=== PATIENT | male | born 1985 | race Caucasian/White ===

== ENCOUNTER 2017-01-17 18:25 | Emergency (ER) | payer OTHER ==
[2017-01-17 20:39] VITALS: BP 129/78; PULSE 103; RESP 18; TEMP 97.7
--- NOTE | 2017-01-17 20:43 | ED ---
General Adult HPI - General Chief complaint: Anxiety Stated complaint: ANXIETY Time Seen by Provider: 01/17/17 20:12 Source: patient Mode of arrival: ambulatory Limitations: no limitations - History of Present Illness Initial comments: 31-year-old male with history of anxiety presenting for worsening anxiety. Patient states his headache worsen stresses over the past week and still very anxious for the past 4 days. He states his neck really have any of his medications. He has not followed up with primary doctor past several months. He denies any other medical complaints at this time. Denies any fevers or chills. Denies any chest pain or shortness breath. - Related Data Previous Rx's Medication Instructions Recorded LORazepam [Ativan] 1 mg PO HS PRN #5 tab 01/17/17 Allergies Allergy/AdvReac Type Severity Reaction Status Date / Time No Known Allergies Allergy Verified 01/17/17 20:17 Review of Systems ROS Statement: Those systems with pertinent positive or pertinent negative responses have been documented in the HPI. ROS Other: All systems not noted in ROS Statement are negative. Past Medical History Past Medical History: No Reported History Additional Past Medical History / Comment(s): chronic back pain, migraine, seasonal ALLERGIES, kidney stones History of Any Multi-Drug Resistant Organisms: None Reported Past Surgical History: No Surgical Hx Reported Past Anesthesia/Blood Transfusion Reactions: No Reported Reaction Past Psychological History: ADD/ADHD, Anxiety, Depression Smoking Status: Heavy tobacco smoker Past Alcohol Use History: Daily Additional Past Alcohol Use History / Comment(s): Patient smokes a pack a day Past Drug Use History: None Reported Additional Drug Use History / Comment(s): amphetamines - Past Family History Father Family Medical History: No Reported History Additional Family Medical History / Comment(s): Father is approximately 50 years of age. Patient has no contact with his father. Mother Family Medical History: No Reported History Additional Family Medical History / Comment(s): Mother is age 48 and healthy with no major medical problems. Sister(s) Additional Family Medical History / Comment(s): He has 2 sisters with no major medical problems. Patient does not have any brothers. General Exam - General Exam Comments Initial Comments: General: Awake and Alert. No acute distress. Does not appear acutely ill. Eyes: GIOVANNY, EOM intact. No nystagmus. No scleral icterus. HENT: Atraumatic, normocephalic. Mucous membranes moist. Trachea midline. Neck: The neck is supple, there is no tenderness or JVD. Cardiovascular: Regular rate and rhythm. No murmur, rub, or gallop is appreciated. Distal pulses intact. Respiratory: Lungs are clear to auscultation bilaterally. No wheezes, rales, rhonchi. No respiratory distress. Gastrointestinal: Soft, Nontender. No rebound or guarding. Non-distended. No masses or organomegaly noted. No CVA tenderness. Musculoskeletal: No tenderness. Normal ROM. No gross deformity. No strength deficits. Neurological: A&Ox3. CN II-XII grossly intact, There are no obvious motor or sensory deficits. Coordination appears grossly intact. Speech is normal. Skin: Skin is warm and dry and no rashes or lesions are noted. Psychiatric: Cooperative. Blunted affect. Appears somewhat anxious. Limitations: no limitations Course Vital Signs 01/17/17 01/17/17 18:52 20:37 Temperature 99.4 F 97.7 F Pulse Rate 107 H 103 H Respiratory 16 18 Rate Blood Pressure 137/92 129/78 O2 Sat by Pulse 99 100 Oximetry Medical Decision Making - Medical Decision Making 31-year-old male presenting for anxiety. Patient without other significant medical complaints at this time. He denies suicidal or homicidal ideations. I had discussion with patient about importance PCP follow-up. He has not been compliant with PCP follow-up for his normal medications. Discussed I would provide him with Rx for several of his Ativan pills to help with his anxiety. Discussed need for outpatient follow-up as the ER is not an appropriate place for routine medical care. Discussed concerning signs symptoms for immediate return in ED. Patient is otherwise stable for discharge at this time. Patient agreeable with plan and discharge home. Provided with follow-up information as he does not currently have PCP. Disposition Clinical Impression: Anxiety Disposition: HOME SELF-CARE Instructions: Generalized Anxiety Disorder (ED) Prescriptions: LORazepam [Ativan] 1 mg PO HS PRN #5 tab PRN Reason: Anxiety Referrals: None,Stated [Primary Care Provider] - 1-2 days Reynaldo Friend MD [REFERRING] - 1-2 days Time of Disposition: 20:42
== END 2017-01-17 20:52 | disposition home or self-care (01) ==
LOC: EC 18:25
DX: F41.9 Anxiety disorder, unspecified (principal); R51 Headache; F17.200 Nicotine dependence, unspecified, uncomplicated
CPT/HCPCS: 99282

== ENCOUNTER 2017-01-18 07:16 | Emergency (ER) | payer OTHER ==
--- NOTE | 2017-01-18 07:42 | ED ---
Psych HPI - General Chief Complaint: Psychiatric Symptoms Stated Complaint: Anxiety Time Seen by Provider: 01/18/17 07:30 Source: patient, RN notes reviewed Mode of arrival: ambulatory - History of Present Illness Initial Comments: This is a 31-year-old male history depression who states he is feeling depressed and suicidal for the past 2 days. He has been off medications. He states he has had thoughts of stabbing himself were drawn so. He states years multiple stressors. Nothing specific. Denies any drug or alcohol this time he denies any fevers chills nausea vomiting sweats. He voices no other complaints. MD Complaint: suicidal ideation, feels depressed - Related Data Home Medications Medication Instructions Recorded Confirmed LORazepam [Ativan] 2 mg PO BID PRN 01/18/17 01/18/17 QUEtiapine [SEROquel] 100 mg PO HS 01/18/17 01/18/17 Venlafaxine HCl [Effexor] 100 mg PO DAILY 01/18/17 01/18/17 Allergies Allergy/AdvReac Type Severity Reaction Status Date / Time No Known Allergies Allergy Verified 01/18/17 08:32 Review of Systems ROS Statement: Those systems with pertinent positive or pertinent negative responses have been documented in the HPI. ROS Other: All systems not noted in ROS Statement are negative. Past Medical History Past Medical History: No Reported History Additional Past Medical History / Comment(s): chronic back pain, migraine, seasonal ALLERGIES, kidney stones History of Any Multi-Drug Resistant Organisms: None Reported Past Surgical History: No Surgical Hx Reported Past Anesthesia/Blood Transfusion Reactions: No Reported Reaction Past Psychological History: ADD/ADHD, Anxiety, Depression Smoking Status: Heavy tobacco smoker Past Alcohol Use History: Daily Additional Past Alcohol Use History / Comment(s): Patient smokes a pack a day Past Drug Use History: None Reported Additional Drug Use History / Comment(s): amphetamines - Past Family History Father Family Medical History: No Reported History Additional Family Medical History / Comment(s): Father is approximately 50 years of age. Patient has no contact with his father. Mother Family Medical History: No Reported History Additional Family Medical History / Comment(s): Mother is age 48 and healthy with no major medical problems. Sister(s) Additional Family Medical History / Comment(s): He has 2 sisters with no major medical problems. Patient does not have any brothers. General Exam - General Exam Comments Initial Comments: This is a well-developed well-nourished awake alert oriented 3 male Limitations: no limitations General appearance: alert, in no apparent distress Head exam: Present: atraumatic, normocephalic, normal inspection Eye exam: Present: normal appearance, PERRL, EOMI. Absent: scleral icterus, conjunctival injection, periorbital swelling ENT exam: Present: normal exam, mucous membranes moist Neck exam: Present: normal inspection. Absent: tenderness, meningismus, lymphadenopathy Respiratory exam: Present: normal lung sounds bilaterally. Absent: respiratory distress, wheezes, rales, rhonchi, stridor Cardiovascular Exam: Present: regular rate, normal rhythm, normal heart sounds. Absent: systolic murmur, diastolic murmur, rubs, gallop, clicks GI/Abdominal exam: Present: soft, normal bowel sounds. Absent: distended, tenderness, guarding, rebound, rigid Extremities exam: Present: normal inspection, full ROM, normal capillary refill. Absent: tenderness, pedal edema, joint swelling, calf tenderness Back exam: Present: normal inspection Neurological exam: Present: alert, oriented X3, CN II-XII intact Psychiatric exam: Present: depressed, flat affect, suicidal ideation Skin exam: Present: warm, dry, intact, normal color. Absent: rash Course Vital Signs 01/18/17 07:19 Temperature 97.0 F L Pulse Rate 90 Respiratory 18 Rate Blood Pressure 136/93 O2 Sat by Pulse 100 Oximetry Medical Decision Making - Medical Decision Making The patient was evaluated by [facility]. He currently not wrist himself or anyone else he does admit to substance abuse problem. Patient will be sent to [facility] today. The [facility] worker will take him personally. - Lab Data Lab Results 01/18/17 Range/Units 10:15 Urine Opiates Screen Not Detected (NotDetected) Ur Oxycodone Screen Not Detected (NotDetected) Urine Methadone Screen Detected H (NotDetected) Ur Propoxyphene Screen Not Detected (NotDetected) Ur Barbiturates Screen Not Detected (NotDetected) U Tricyclic Antidepress Not Detected (NotDetected) Ur Phencyclidine Scrn Not Detected (NotDetected) Ur Amphetamines Screen Detected H (NotDetected) U Methamphetamines Scrn Detected H (NotDetected) U Benzodiazepines Scrn Not Detected (NotDetected) Urine Cocaine Screen Not Detected (NotDetected) U Marijuana (THC) Screen Not Detected (NotDetected) Disposition Clinical Impression: Adjustment reaction, Depression, Substance abuse Disposition: HOME SELF-CARE Condition: Good Instructions: Depression (ED), Anxiety (ED), Polysubstance Abuse (ED) Additional Instructions: Go to a [facility] today Referrals: None,Stated [Primary Care Provider] - 1-2 days
[2017-01-18 11:33] VITALS: BP 127/64; PULSE 94; RESP 16; TEMP 97.9
== END 2017-01-18 11:37 | disposition home or self-care (01) ==
LOC: EC 07:16
DX: F43.20 Adjustment disorder, unspecified (principal); F32.9 Major depressive disorder, single episode, unspecified; F19.19 Other psychoactive substance abuse with unspecified psychoactive substance-induced disorder; F41.9 Anxiety disorder, unspecified; F17.200 Nicotine dependence, unspecified, uncomplicated; Z79.899 Other long term (current) drug therapy
CPT/HCPCS: 80306; 82075; 99284

== ENCOUNTER 2017-02-21 23:32 | Emergency (ER) | payer OTHER ==
[2017-02-21 23:38] VITALS: BP 130/79; PULSE 107; RESP 18; TEMP 99
[2017-02-21] MEDS ORDERED: AMOXICILLIN 500MG STARTER PACK 3 CAP BTL PO STA (23:45)
[2017-02-21] MEDS ORDERED: MAG HYDROX/AL HYDROX/SIMETH 30 ML, HYOSCYAMINE ELIXIR 10 ML, CIMETIDINE HCL 300 MG, LID... PO STA ×4 (23:45)
--- NOTE | 2017-02-21 23:50 | ED ---
General Adult HPI - General Chief complaint: ENT Stated complaint: sore throat Time Seen by Provider: 02/21/17 23:40 Source: patient, family, RN notes reviewed Mode of arrival: ambulatory Limitations: no limitations - History of Present Illness Initial comments: Patient is a pleasant 31-year-old male presenting to the emergency department complaining of throat pain. Symptoms have been waxing and waning over the past couple of weeks. Patient also has discomfort of his right side of the throat where his dentures touch. Patient states his throat also hurts posterior and down inside. Patient states it hurts to eat and drink. Symptoms have been worse the past day or 2. No fevers. No cough. No dyspnea. - Related Data Previous Rx's Medication Instructions Recorded Amoxicillin 500 mg PO Q8H #30 capsule 02/21/17 Allergies Allergy/AdvReac Type Severity Reaction Status Date / Time No Known Allergies Allergy Verified 02/21/17 23:45 Review of Systems ROS Statement: Those systems with pertinent positive or pertinent negative responses have been documented in the HPI. ROS Other: All systems not noted in ROS Statement are negative. Constitutional: Denies: fever Eyes: Denies: eye pain ENT: Reports: throat pain. Denies: ear pain Respiratory: Denies: dyspnea Cardiovascular: Denies: chest pain Endocrine: Denies: fatigue Gastrointestinal: Denies: abdominal pain Genitourinary: Denies: dysuria Musculoskeletal: Denies: back pain Skin: Denies: rash Neurological: Denies: weakness Past Medical History Past Medical History: No Reported History Additional Past Medical History / Comment(s): chronic back pain, migraine, seasonal ALLERGIES, kidney stones History of Any Multi-Drug Resistant Organisms: None Reported Past Surgical History: No Surgical Hx Reported Past Anesthesia/Blood Transfusion Reactions: No Reported Reaction Past Psychological History: ADD/ADHD, Anxiety, Depression Smoking Status: Never smoker Past Alcohol Use History: Daily Past Drug Use History: None Reported - Past Family History Father Family Medical History: No Reported History Additional Family Medical History / Comment(s): Father is approximately 50 years of age. Patient has no contact with his father. Mother Family Medical History: No Reported History Additional Family Medical History / Comment(s): Mother is age 48 and healthy with no major medical problems. Sister(s) Additional Family Medical History / Comment(s): He has 2 sisters with no major medical problems. Patient does not have any brothers. General Exam Limitations: no limitations General appearance: alert, in no apparent distress Head exam: Present: atraumatic Eye exam: Present: normal appearance, PERRL ENT exam: Present: other (Patient doesn't mild pharyngeal erythema. Patient does have a small approximately 8 x 3 mm ulceration right posterior palate where the upper denture does touch.) Expanded Throat exam: other (No trismus). negative: tonsillomegaly, tonsillar exudate, R peritonsillar mass, L peritonsillar mass Neck exam: Present: lymphadenopathy (Mildly tender) Respiratory exam: Present: normal lung sounds bilaterally Cardiovascular Exam: Present: regular rate, normal rhythm GI/Abdominal exam: Present: soft. Absent: tenderness Extremities exam: Present: normal inspection Neurological exam: Present: alert Psychiatric exam: Present: normal affect, normal mood Skin exam: Present: normal color Course Vital Signs 02/21/17 23:36 Temperature 99 F Pulse Rate 107 H Respiratory 18 Rate Blood Pressure 130/79 O2 Sat by Pulse 97 Oximetry Disposition Clinical Impression: Pharyngitis, Mouth ulcer Disposition: HOME SELF-CARE Condition: Stable Instructions: Pharyngitis (ED) Additional Instructions: Please follow-up with your doctor in the next couple days for recheck. If symptoms continue despite antibiotics she may need to have direct visualization of the throat by ENT, number provided. Return for not tolerating fluids, difficulty breathing, worsening symptoms or other concerns. Avoid using your dentures until mouth ulcer clears. Prescriptions: Amoxicillin 500 mg PO Q8H #30 capsule Referrals: Harjit Santa MD [STAFF PHYSICIAN] - 1-2 days Doe Aguero MD [STAFF PHYSICIAN] - 1-2 days Time of Disposition: 23:50
== END 2017-02-21 23:58 | disposition home or self-care (01) ==
LOC: EC 23:32
DX: J02.9 Acute pharyngitis, unspecified (principal); K12.1 Other forms of stomatitis
CPT/HCPCS: 99282

== ENCOUNTER 2017-05-03 20:46 | Emergency (ER) | payer OTHER ==
[2017-05-03 21:02] VITALS: BP 124/69; PULSE 98; RESP 16; TEMP 99.2
[2017-05-03] MEDS ORDERED: LORazepam 1 MG TAB PO STA (21:12)
--- NOTE | 2017-05-03 21:14 | ED ---
General Adult HPI - General Chief complaint: Anxiety Stated complaint: Anxiety Time Seen by Provider: 05/03/17 21:00 Source: patient, RN notes reviewed Mode of arrival: ambulatory Limitations: no limitations - History of Present Illness Initial comments: This is a 31-year-old male presents emergency department stating that he is anxious. Patient states he used to be on Ativan pain no longer has any because he has not followed up with [facility]. Patient states he plans to follow-up at [facility] and he is capable of following up tomorrow. Patient states he just needs something tonight because he is becoming very anxious and is afraid he is going to have a panic attack. Patient denies any physical complaints today. Patient denies headache patient denies numbness weakness. Patient denies any chest pain difficulty breathing Obion of breath per patient denies any abdominal pain patient denies nausea vomiting diarrhea. And in fact was begun patient is drinking couple coughing currently. Patient denies any recent injury or trauma. Patient states she has been addicted in the past 2 pain pills but he is no longer because he went through rehab approximately year ago. - Related Data Home Medications Medication Instructions Recorded Confirmed No Known Home Medications [No 05/03/17 05/03/17 Known Home Medications] Allergies Allergy/AdvReac Type Severity Reaction Status Date / Time No Known Allergies Allergy Verified 05/03/17 21:06 Review of Systems ROS Statement: Those systems with pertinent positive or pertinent negative responses have been documented in the HPI. ROS Other: All systems not noted in ROS Statement are negative. Past Medical History Past Medical History: No Reported History Additional Past Medical History / Comment(s): chronic back pain, migraine, seasonal ALLERGIES, kidney stones History of Any Multi-Drug Resistant Organisms: None Reported Past Surgical History: No Surgical Hx Reported Past Anesthesia/Blood Transfusion Reactions: No Reported Reaction Past Psychological History: ADD/ADHD, Anxiety, Depression Smoking Status: Never smoker Past Alcohol Use History: Daily Past Drug Use History: None Reported - Past Family History Father Family Medical History: No Reported History Additional Family Medical History / Comment(s): Father is approximately 50 years of age. Patient has no contact with his father. Mother Family Medical History: No Reported History Additional Family Medical History / Comment(s): Mother is age 48 and healthy with no major medical problems. Sister(s) Additional Family Medical History / Comment(s): He has 2 sisters with no major medical problems. Patient does not have any brothers. General Exam - General Exam Comments Initial Comments: GENERAL: Patient is well-developed and well-nourished. Patient is nontoxic and well- hydrated and is in no acute distress. ENT: Neck is soft and supple. No significant lymphadenopathy is noted. Moist mucous membranes. Neck has full range of motion without eliciting any pain. EYES: The sclera were anicteric and conjunctiva were pink and moist. Extraocular movements were intact and pupils were equal round and reactive to light. Eyelids were unremarkable. PULMONARY: Unlabored respirations. Good breath sounds bilaterally. No audible rales rhonchi or wheezing was noted. CARDIOVASCULAR: There is a regular rate and rhythm without any murmurs gallops or rubs. ABDOMEN: Soft and nontender with normal bowel sounds. SKIN: Skin is clear with no lesions or rashes and otherwise unremarkable. NEUROLOGIC: Patient is alert and oriented x3. Cranial nerves II through XII are grossly intact. Motor and sensory are also intact. Normal speech, volume and content. Symmetrical smile. MUSCULOSKELETAL: Normal extremities with adequate strength and full range of motion. No lower extremity swelling or edema. No calf tenderness. PSYCHIATRIC: Patient is mildly anxious he denies suicidal or homicidal ideations he denies any delusions or hallucinations. Limitations: no limitations Course Vital Signs 05/03/17 20:59 Temperature 99.2 F Pulse Rate 98 Respiratory 16 Rate Blood Pressure 124/69 O2 Sat by Pulse 98 Oximetry Disposition Clinical Impression: Acute anxiety Disposition: HOME SELF-CARE Condition: Good Instructions: Generalized Anxiety Disorder (ED) Referrals: None,Stated [Primary Care Provider] - 1-2 days Time of Disposition: 21:14
== END 2017-05-03 21:22 | disposition home or self-care (01) ==
LOC: EC 20:46
DX: F41.9 Anxiety disorder, unspecified (principal)
CPT/HCPCS: 82075; 99283

== ENCOUNTER 2018-02-14 08:51 | Inpatient (IN) | payer OTHER ==
--- NOTE | 2018-02-14 09:46 | ED ---
General Adult HPI - General Chief complaint: Psychiatric Symptoms Stated complaint: Mental Health Time Seen by Provider: 02/14/18 09:08 Source: patient, RN notes reviewed Mode of arrival: ambulatory Limitations: no limitations - History of Present Illness Initial comments: Patient 32-year-old male presented to the emergency room today with a chief complaint of suicidal ideation. Patient does admit that he's been off his medications for over a month. He states last time he saw his counselor was a month ago. Patient does admit he is having thoughts of hurting himself. At this time denies any specific plan. Patient denies homicidal thoughts or plans. Denies any other physical complaint. Patient denies any recent fever, chills, shortness of breath, chest pain, back pain, abdominal pain, nausea or vomiting, numbness or tingling, headaches or visual changes, or any other complaints. - Related Data Home Medications Medication Instructions Recorded Confirmed OLANZapine [ZyPREXA] 5 mg PO QAM 02/14/18 02/14/18 OLANZapine [ZyPREXA] 20 mg PO HS 02/14/18 02/14/18 buPROPion HCL [Wellbutrin XL] 150 mg PO HS 02/14/18 02/14/18 Allergies Allergy/AdvReac Type Severity Reaction Status Date / Time No Known Allergies Allergy Verified 02/14/18 09:32 Review of Systems ROS Statement: Those systems with pertinent positive or pertinent negative responses have been documented in the HPI. ROS Other: All systems not noted in ROS Statement are negative. Past Medical History Past Medical History: No Reported History Additional Past Medical History / Comment(s): chronic back pain, migraine, seasonal ALLERGIES, kidney stones History of Any Multi-Drug Resistant Organisms: None Reported Past Surgical History: No Surgical Hx Reported Additional Past Surgical History / Comment(s): Oral Surgery 1990s, per patient. Past Anesthesia/Blood Transfusion Reactions: No Reported Reaction Past Psychological History: ADD/ADHD, Anxiety, Depression Smoking Status: Never smoker Past Alcohol Use History: None Reported, Daily Past Drug Use History: None Reported - Past Family History Father Family Medical History: No Reported History Additional Family Medical History / Comment(s): Father is approximately 50 years of age. Patient has no contact with his father. Mother Family Medical History: No Reported History Additional Family Medical History / Comment(s): Mother is age 48 and healthy with no major medical problems. Sister(s) Family Medical History: No Reported History Additional Family Medical History / Comment(s): He has 2 sisters with no major medical problems. Patient does not have any brothers. General Exam - General Exam Comments Initial Comments: General: The patient is awake and alert, in no distress, and does not appear acutely ill. Eye: Pupils are equal, round and reactive to light, extra-ocular movements are intact. No nystagmus. There is normal conjunctiva bilaterally. No signs of icterus. Ears, nose, mouth and throat: There are moist mucous membranes and no oral lesions. Neck: The neck is supple, there is no tenderness or JVD. Cardiovascular: There is a regular rate and rhythm. No murmur, rub or gallop is appreciated. Respiratory: Lungs are clear to auscultation, respirations are non-labored, breath sounds are equal. No wheezes, stridor, rales, or rhonchi. Musculoskeletal: Normal ROM, no tenderness. Strength 5/5. Sensation intact. Pulses equal bilaterally 2+. Neurological: A&O x 3. CN II-XII intact, There are no obvious motor or sensory deficits. Coordination appears grossly intact. Speech is normal. Skin: Skin is warm and dry and no rashes or lesions are noted. Psychiatric: Cooperative Limitations: no limitations Course Vital Signs 02/14/18 09:02 Temperature 98.2 F Pulse Rate 118 H Respiratory 18 Rate Blood Pressure 124/83 O2 Sat by Pulse 100 Oximetry Medical Decision Making - Medical Decision Making Patient seen here the emergency room by [facility] further recommended admission. Patient will sign himself in. - Lab Data Lab Results 02/14/18 Range/Units 10:00 Urine Opiates Screen Not Detected (NotDetected) Ur Oxycodone Screen Not Detected (NotDetected) Urine Methadone Screen Detected H (NotDetected) Ur Propoxyphene Screen Not Detected (NotDetected) Ur Barbiturates Screen Not Detected (NotDetected) U Tricyclic Antidepress Not Detected (NotDetected) Ur Phencyclidine Scrn Not Detected (NotDetected) Ur Amphetamines Screen Detected H (NotDetected) U Methamphetamines Scrn Detected H (NotDetected) U Benzodiazepines Scrn Not Detected (NotDetected) Urine Cocaine Screen Not Detected (NotDetected) U Marijuana (THC) Screen Detected H (NotDetected) Disposition Clinical Impression: Suicidal ideation Disposition: HOME SELF-CARE Condition: Good Is patient prescribed a controlled substance at d/c from ED?: No Time of Disposition: 13:52
[2018-02-14 10:32] LABS: Amphetamine Screen,Urine Detected (NotDetected); Barbiturate Screen,Urine Not Detected (NotDetected); Benzodiazepines Screen,Urine Not Detected (NotDetected); Cocaine Screen,Urine Not Detected (NotDetected); Methadone Screen, Urine Detected (NotDetected); Opiate Screen,Urine Not Detected (NotDetected); Oxycodone Screen, Urine Not Detected (NotDetected); Phencyclidine Screen,Urine Not Detected (NotDetected); Tricyclic Antidepressant,Urine Not Detected (NotDetected); Urn Cannabinoid Scrn Detected (NotDetected)
[2018-02-14] MEDS ORDERED: ACETAMINOPHEN TAB 325 MG TAB PO PRN (15:05)
[2018-02-14] MEDS ORDERED: ZIPRASIDONE 20 MG VIAL IM PRN (15:05)
[2018-02-14] MEDS ORDERED: LORazepam 1 MG TAB PO PRN (15:05)
[2018-02-14] MEDS ORDERED: MAG HYDROX/AL HYDROX/SIMETH 30 ML CUP PO PRN (15:05)
[2018-02-14] MEDS ORDERED: MAGNESIUM HYDROXIDE 2,400 MG/10 ML CUP PO PRN (15:05)
--- NOTE | 2018-02-14 17:24 | P.HPIM ---
History of Present Illness H&P Date: 02/14/18 Chief Complaint: Depression with suicidal ideation Patient is a 32-year-old male presented to the emergency room today with a chief complaint of suicidal ideation. He has history of bipolar disorder and depression and supposed to be on medication for those conditions. Patient does admit that he's been off his medications for over a month. He states last time he saw his counselor was a month ago. He has been increasingly depressed and anxious over the past several weeks, having thoughts about killing himself. He was thinking about cutting his wrist. He did not execute any of that. Otherwise denied any pain, shortness of breath, fevers or chills, recent illness , nausea or vomiting. No hallucinations or delusions. No homicidal thoughts or plans. Review of Systems 12 point review of system performed, negative except HPI Past Medical History Past Medical History: No Reported History Additional Past Medical History / Comment(s): chronic back pain, migraine, seasonal ALLERGIES, kidney stones History of Any Multi-Drug Resistant Organisms: None Reported Past Surgical History: No Surgical Hx Reported Additional Past Surgical History / Comment(s): Oral Surgery 1990s, per patient. Past Anesthesia/Blood Transfusion Reactions: No Reported Reaction Past Psychological History: ADD/ADHD, Anxiety, Depression Smoking Status: Never smoker Past Alcohol Use History: None Reported Past Drug Use History: Heroin, Marijuana, Methamphetamine, Opiates, Prescription Drug Abuse - Past Family History Father Family Medical History: No Reported History Additional Family Medical History / Comment(s): Father is approximately 50 years of age. Patient has no contact with his father. Mother Family Medical History: No Reported History Additional Family Medical History / Comment(s): Mother is age 48 and healthy with no major medical problems. Sister(s) Family Medical History: No Reported History Additional Family Medical History / Comment(s): He has 2 sisters with no major medical problems. Patient does not have any brothers. Medications and Allergies Home Medications Medication Instructions Recorded Confirmed Type OLANZapine [ZyPREXA] 5 mg PO QAM 02/14/18 02/14/18 History OLANZapine [ZyPREXA] 20 mg PO HS 02/14/18 02/14/18 History buPROPion HCL [Wellbutrin XL] 150 mg PO HS 02/14/18 02/14/18 History Allergies Allergy/AdvReac Type Severity Reaction Status Date / Time No Known Allergies Allergy Verified 02/14/18 09:32 Physical Exam Vitals: Vital Signs Temp Pulse Pulse Resp BP BP Pulse Ox 02/14/18 14:40 97.7 F 100 20 130/84 02/14/18 09:02 98.2 F 118 H 18 124/83 100 Intake and Output 02/14/18 02/14/18 02/14/18 06:59 14:59 22:59 Other: Weight 86.6 kg Constitutional: No acute distress, conversant, pleasant Eyes:Anicteric sclerae, moist conjunctiva, no lid-lag, PERRLA, ENMT: Oropharynx clear, no erythema, exudates Neck: Supple, FROM, no masses, or JVD, No carotid bruits, No thyromegaly Lungs: Clear to auscultation, Clear to percussion, Normal respiratory effort, no accessory muscle use Cardiovascular: Heart regular in rate and rhythm, No murmurs, gallops, or rubs, No peripheral edema Abdominal: Soft, Nontender, no guarding, rebound or rigidity, Normoactive bowel sounds, No hepatomegaly, No splenomegaly, No palpable mass Skin: Normal temperature, tone, texture, turgor, no induration, No subcutaneous nodules, No rash, lesions, No ulcers Extremities: No digital cyanosis, No clubbing, Pedal pulses intact and symmetrical, Radial pulses intact and symmetrical, No calf tenderness Psychiatric: Alert and oriented to person, place and time, appropriate affect, intact judgement Neuro: Muscles Strength 5/5 in all 4 extremities, Sensation to light touch grossly present throughout, Cranial nerves II-XII grossly intact, no focal sensory deficits Results Labs: Abnormal Lab Results - Last 24 Hours (Table) 02/14/18 Range/Units 10:00 Urine Methadone Screen Detected H (NotDetected) Ur Amphetamines Screen Detected H (NotDetected) U Methamphetamines Scrn Detected H (NotDetected) U Marijuana (THC) Screen Detected H (NotDetected) Thrombosis Risk Factor Assmnt - Choose All That Apply Any of the Below Risk Factors Present?: No Other Risk Factors: No Other congenital or acquired thrombophilia - If yes, enter type in comment: No Thrombosis Risk Factor Assessment Level: Very Low Risk Assessment and Plan Plan: Worsening depression with suicidal ideation/history of bipolar disorder and anxiety Management per psychiatry Continue patient's home medications Health maintenance Check CBC, CMP, lipid profile, TSH
[2018-02-15] MEDS ORDERED: OLANZapine 2.5 MG TAB PO PRN (09:39)
[2018-02-15] MEDS: buPROPion SR 150 MG TABLET.ER PO SCH (10:39)
[2018-02-15 14:21] LABS: Basophils % (A) 0 %; Eosinophils # (A) 0.1 k/uL (0-0.7); Eosinophils % (A) 1 %; HCT 41.5 % (39.0-53.0); HGB 15.1 gm/dL (13.0-17.5); Lymphocytes # (A) 1.5 k/uL (1.0-4.8); Lymphocytes % (A) 25 %; MCHC 36.3 g/dL (31.0-37.0); MCV 85.2 fL (80.0-100.0); Mean Platelet Volume 8.1; Monocytes # (A) 0.5 k/uL (0-1.0); Monocytes % (A) 9 %; Neutrophils # (A) 3.8 k/uL (1.3-7.7); Neutrophils % (A) 61 %; Platelet Count 293 k/uL (150-450); RBC 4.87 m/uL (4.30-5.90); RDW 12.6 % (11.5-15.5); WBC 6.1 k/uL (3.8-10.6)
[2018-02-15 14:32] LABS: ALT 50 U/L (21-72); AST 37 U/L (17-59); Albumin 4.2 g/dL (3.5-5.0); Alkaline Phosphatase 86 U/L (38-126); Anion Gap 11 mmol/L; Blood Urea Nitrogen 17 mg/dL (9-20); Calcium 9.5 mg/dL (8.4-10.2); Carbon Dioxide 32 mmol/L (22-30); Chloride 94 mmol/L (98-107); Cholesterol 191 mg/dL (<200); Glucose 122 mg/dL (74-99); HDL Cholesterol 37 mg/dL (40-60); LDL Cholesterol,Calculated 111 mg/dL (0-99); Sodium 137 mmol/L (137-145); Total Bilirubin 0.8 mg/dL (0.2-1.3); Total Protein 6.7 g/dL (6.3-8.2); Triglycerides 217 mg/dL (<150)
--- NOTE | 2018-02-15 15:27 | P.HP ---
Psychiatric H&P - . H&P Date: 02/15/18 History & Physical: Allergies Allergy/AdvReac Type Severity Reaction Status Date / Time No Known Allergies Allergy Verified 02/14/18 09:32 Vital Signs Temp 97.6 F 02/15/18 06:37 Pulse 80 02/15/18 06:37 Resp 16 02/15/18 06:37 BP 104/59 02/15/18 06:37 Pulse Ox 100 02/14/18 09:02 Intake & Output 02/14/18 02/15/18 02/15/18 18:59 06:59 18:59 Weight 86.6 kg Laboratory Last Values WBC 6.1 k/uL (3.8-10.6) 02/15/18 14:02 RBC 4.87 m/uL (4.30-5.90) 02/15/18 14:02 Hgb 15.1 gm/dL (13.0-17.5) 02/15/18 14:02 Hct 41.5 % (39.0-53.0) 02/15/18 14:02 MCV 85.2 fL (80.0-100.0) 02/15/18 14:02 MCH 31.0 pg (25.0-35.0) 02/15/18 14:02 MCHC 36.3 g/dL (31.0-37.0) 02/15/18 14:02 RDW 12.6 % (11.5-15.5) 02/15/18 14:02 Plt Count 293 k/uL (150-450) 02/15/18 14:02 Neutrophils % 61 % 02/15/18 14:02 Lymphocytes % 25 % 02/15/18 14:02 Monocytes % 9 % 02/15/18 14:02 Eosinophils % 1 % 02/15/18 14:02 Basophils % 0 % 02/15/18 14:02 Neutrophils # 3.8 k/uL (1.3-7.7) 02/15/18 14:02 Lymphocytes # 1.5 k/uL (1.0-4.8) 02/15/18 14:02 Monocytes # 0.5 k/uL (0-1.0) 02/15/18 14:02 Eosinophils # 0.1 k/uL (0-0.7) 02/15/18 14:02 Basophils # 0.0 k/uL (0-0.2) 02/15/18 14:02 Urine Opiates Screen Not Detected (NotDetected) 02/14/18 10:00 Ur Oxycodone Screen Not Detected (NotDetected) 02/14/18 10:00 Urine Methadone Screen Detected (NotDetected) H 02/14/18 10:00 Ur Propoxyphene Screen Not Detected (NotDetected) 02/14/18 10:00 Ur Barbiturates Screen Not Detected (NotDetected) 02/14/18 10:00 U Tricyclic Antidepress Not Detected (NotDetected) 02/14/18 10:00 Ur Phencyclidine Scrn Not Detected (NotDetected) 02/14/18 10:00 Ur Amphetamines Screen Detected (NotDetected) H 02/14/18 10:00 U Methamphetamines Scrn Detected (NotDetected) H 02/14/18 10:00 U Benzodiazepines Scrn Not Detected (NotDetected) 02/14/18 10:00 Urine Cocaine Screen Not Detected (NotDetected) 02/14/18 10:00 U Marijuana (THC) Screen Detected (NotDetected) H 02/14/18 10:00 02/15/18 14:58 Identification: Patient is a 32-year-old male who presented to the emergency room after riding a bus here. History of Present Illness: Patient states that he was feeling increasingly depressed and had suicidal thoughts with a plan to cut his wrist and so took the bus to the emergency room. He states he has not followed up with [facility] and was last seen by them at the end of December. He states that he ran out of his medications because he missed his appointment on January 24. Patient had recently been in [facility] and was discharged several weeks ago following a charge of retail fraud. He states that he is not currently on probation. Patient states that he also began using methamphetamine after his discharge from [facility] and did use marijuana as well as methadone prior to his admission. Patient states he was supposed to be taking Wellbutrin 150 mg sustained release in the morning and Zyprexa 5 morning 20 at night but it is unclear to me if he has not been on these for 2 weeks or longer than that. Of time patient is unsure. Patient states that since he's been off the medication his depression is returned and he is crying feeling hopeless and helpless and has not been sleeping and feeling tired with the decreased appetite. Patient states he's been having suicidal thoughts and a plan to cut himself. He states his anxiety has also increased with panic attacks with hyperventilation and he states these occur in a daily basis. He reports that he has also had a return of paranoia any suspicious of everybody and has having auditory hallucinations telling him to hurt himself and making derogatory comments about him. Patient states that he's been using meth every day for last several months and used in the past and used methadone only on one occasion. Patient states when he was on his medication he thinks that he was doing fairly well. Patient states that when he uses the methamphetamine makes him feel on top of the world but does make him feel paranoid and suspicious. Patient states his symptoms began after he began using methamphetamine when he began to feel paranoid, feeling top of the world when intoxicated and depressed when he came off the drug Past Psychiatric History: This will be the patient's fifth admission he was admitted last year in May 2017 and had 3 admissions in 2016. Patient has been on Seroquel Abilify Wellbutrin and Zyprexa. Patient has a history of 2 prior suicide attempts by cutting his wrists. Past Medical/Surgical History: Patient reports back pain as his only health complaint and no surgeries Family History: Patient denies a family history of any psychiatric disorders no alcohol or substance abuse disorders andcompleted suicides Social History: Patient was born and raised to parents who never and he has 2 sisters. He completed high school and attended 1 semester at college but started using drugs, cocaine and dropped out of school. 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 He states since that time he has been unable to hold a job. He was working at [employer] but lost his job when he was discharged due to his use of drugs. Patient states that since he was released from [employer] he's been living with friends and has no source of financial support. The patient has never been and has no children. Patient denies any abuse history. Substance Use History: Patient states that he does not use alcohol. He states that he began using cocaine at the age of 17 but does not currently use. He began using methamphetamine at the age of 27 and uses daily on a daily basis and has been using it daily for the last several weeks. Patient states that he is used opiate medication purchased on the street in the past. Patient states that he also abused amphetamines purchased on the street since the age of 22. Patient states he is also abused benzodiazepines, Xanax purchased on the street and last used on one occasion recently. Patient also reports one use of methadone recently. He denies any IV drug use hallucinogenic drug use. Patient reports no tobacco products use Legal History: Patient was charged with retail fraud and was released in November from [facility] after serving 5-1/2 months. After that he went to [facility] and was just recently released. He is not currently on probation Mental status: Appearance/Attitude: Patient is dressed in a hospital gown, makes good eye contact and was cooperative Behavior: Patient does not exhibit any psychomotor agitation or retardation. Speech/Language: Patient's speech is slightly slowed and his speech is spontaneous of normal rhythm and he is coherent Thought Process: Patient is goal-directed and there is no evidence of loose association or flight of ideas Thought Content: Patient reports auditory hallucinations that are telling him to hurt himself and making derogatory comments, he denies any visual hallucinations. Patient reports that he is suspicious and paranoid that people are out to get him and hurt him. He also reports that he has panic attacks where he has difficulty breathing and states this occurs on a daily basis. Patient reports that he has not been sleeping and feeling tired and exhausted and his appetite has been decreased. Suicidal/Homicidal Ideation: Patient reports that he currently is still feeling suicidal and had a plan to cut his wrist and denies any current homicidal ideation Sensorium/Cognition: Patient is alert and oriented to person, place, and time and his recent and remote memory are grossly intact. Mood/Affect: patient's mood is depressed and his affect is blunted Insight/Judgment: patient's insight and judgment are fair Intellectual Functioning: patient's intellectual functioning appears average Strength/Weakness: patient continues to use drugs, lack of financial support does have housing Assessment: patient has a history of using methamphetamine and states that he began to have his symptoms of depression, auditory hallucinations and paranoia after he began using methamphetamine at the age of 27. Patient states that he was in [facility] and once released began using drugs specifically methamphetamine and marijuana again. Patient states he also missed his last appointment at [facility] and ran out of his medications which had been effective when he was taking them. Patient now presents with symptoms of auditory hallucinations, paranoia and depression with the decrease in his energy appetite and sleep. He states he's feeling hopeless and helpless and reported suicidal ideation with a plan to cut his wrists. Patient has a history of attempting suicide twice in the past. 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 Patient also had routine laboratory studies as well as a medical consultation. Patient and I discussed his response to both the Wellbutrin and Zyprexa in the past and he stated that it was good. Patient will be restarted on Wellbutrin 150 mg sustained release in the morning and Zyprexa 10 mg at bedtime to target both his depressive and psychotic symptoms. I reviewed the use and side effects of the medications with the patient. I also discussed with the patient the use of Zyprexa 2.5 mg 3 times a day when necessary should he begin to feel agitated on the unit. Patient and I also discussed a referral for inpatient substance use treatment and he was agreeable with this. Patient requires hospitalization to target his psychotic symptoms and stabilize his mood.
[2018-02-15] MEDS: OLANZapine 10 MG TAB PO SCH (21:48)
[2018-02-16] MEDS: buPROPion SR 150 MG TABLET.ER PO SCH (10:07)
--- NOTE | 2018-02-16 12:20 | P.PN ---
Progress Note - Text Progress Note Date: 02/16/18 Interval history: Patient is seen in [facility] today. He is found in his room lying in bed. He is agreeable to come to the interview room. He reports that he didn't sleep well last night. He is taking the psychotropic medication. He does not seem to voice any adverse side effects. Mental Status exam: He is cooperative to come into the interview room. His answers are brief, speech is quiet. He does not show any agitation. He describes his mood as "not good." He admits to some on and off auditory hallucinations, is not able to describe them at this time. He admits to some ongoing thoughts of suicide but reports he feels safe here in the hospital. He does not verbalize any thoughts of harm to others. Plan: We'll maintain current psychotropic medication regimen. Continue to monitor for any medication side effects and monitor his ongoing response. Continue to monitor regarding any psychosis symptoms and thoughts of suicide. We'll continue to cover this patient through the weekend.
[2018-02-16] MEDS: OLANZapine 10 MG TAB PO SCH (20:21)
[2018-02-17] MEDS: buPROPion SR 150 MG TABLET.ER PO SCH (09:20)
[2018-02-17 12:53] LABS: Appearance,Urine Clear (Clear); Bilirubin,Urine Negative (Negative); Blood,Urine Negative (Negative); Color,Urine Yellow; Glucose,Urine (UA) 4+ (Negative); Ketones,Urine Negative (Negative); Leukocyte Esterase,Urine Negative (Negative); Nitrite,Urine Negative (Negative); PH, Urine 6.5 (5.0-8.0); Protein,Urine Trace (Negative); Specific Gravity,Urine 1.018 (1.001-1.035)
--- NOTE | 2018-02-17 14:44 | P.PN ---
Progress Note - Text Progress Note Date: 02/17/18 Interval history: Patient is seen in [facility] today. He was found in his room lying in bed. He did awaken with name-calling was agreeable to come to the interview room. He describes ongoing depression but relays his mood is a little bit better compared to yesterday. He does state that he is eating. Sleep was not that good last night. He does not seem to voice any adverse psychotropic medication side effects. Mental status exam: He was found in his room lying in bed. He was awakens name- calling was agreeable to come to the interview room. His affect is restricted. His answers are brief. His mood is depressed. He does state his mood is a little bit better compared to yesterday. He admits to some on and off thoughts of harm to himself but relays he feels safe here in the hospital. He is encouraged to go to staff if he is struggling. He does not verbalize any thoughts of harm to others. He does not show any agitation. He does not verbalize any hallucinations or make any delusional statements. Plan: We'll maintain current psychotropic medication regimen. We'll continue to monitor for any medication side effects and monitor his ongoing response. Continue to monitor regarding any suicidal ideations.
[2018-02-17] MEDS: OLANZapine 10 MG TAB PO SCH (21:12)
[2018-02-18] MEDS: buPROPion SR 150 MG TABLET.ER PO SCH (09:58)
--- NOTE | 2018-02-18 14:18 | P.PN ---
Progress Note - Text Progress Note Date: 02/18/18 Interval History: Patient is a 32-year-old male who was seen today, patient has been in his room in bed since early this morning. Patient states "I don't feel good" but was unable to elaborate on how he was not feeling well. Patient states he still hearing voices and they are about the same but could not tell me what they were saying and reported that he continues to have the occasional suicidal thought. Patient is not going to groups and states that he was in his room because he wasn't feeling well. Mental Status: Appearance/Attitude: Patient is dressed in a hospital gown, aches intermittent eye contact and was superficially cooperative Behavior: Patient did not exhibit any psychomotor agitation or retardation Speech/Language: Patient only responded to questions, speaking in a soft voice and mumbling, he was coherent Thought Process: Patient was goal-directed although his responses were limited and he could not elaborate on how he was feeling or what the voices were saying Thought Content: Patient reports continued auditory hallucinations no visual hallucinations and no paranoid or delusional ideation was elicited. Patient has been sleeping during the day and states that he isn't feeling well but could not elaborate on what he meant by that. Patient reports that he is getting up and eating. Suicidal/Homicidal Ideation: Patient reports that he continues to have suicidal thoughts but with no plan or intent to act and no current homicidal ideation Sensorium/Cognition: Patient is alert and oriented to person, place and time and his recent and remote memory are grossly intact Mood/Affect: Patient's mood is depressed and his affect is blunted Insight/Judgment: Patient's insight and judgment are fair Assessment: Patient has been in his room all day reporting that he doesn't feel good but is unable to elaborate further on what he means by this. He reports continuing to hear voices and feeling about the same. He states that he continues to have suicidal thoughts but no plan or intent to act. Patient has not been participating in groups or activities. He reports no side effects from the medication. Plan: Patient will continue on Wellbutrin 150 mg sustained release in the morning and will increase in Zyprexa to 15 mg at bedtime to target his psychotic symptoms. Should his depression continue to persist will consider increasing his Wellbutrin. Patient continues to require hospitalization secondary to his mood and suicidal ideation and psychotic symptoms
[2018-02-18] MEDS ORDERED: OLANZapine 5 MG TAB PO SCH (21:00)
[2018-02-19] MEDS: buPROPion SR 150 MG TABLET.ER PO SCH (09:28)
[2018-02-19] MEDS: OLANZapine 10 MG TAB PO SCH (21:33)
[2018-02-20] MEDS: buPROPion SR 100 MG TABLET.ER PO SCH (08:07)
--- NOTE | 2018-02-20 14:24 | P.PN ---
Progress Note - Text Progress Note Date: 02/20/18 Interval History: Patient is a 32-year-old male who was found in his room sleeping and did respond to come to the interview room. Patient states that he did contact [employer] yesterday. States that he has not been attending groups and has been staying in bed because he continues to feel depressed and doesn't want to get up. He is eating. Patient states that he continues to have suicidal thoughts because wrists and has voices telling him to kill himself. He states that these are improving but still persistent. Mental Status: Appearance/Attitude: Patient is casually dressed, makes intermittent eye contact and is cooperative Behavior: Patient does not display any psychomotor agitation or retardation. Speech/Language: Patient speech is spontaneous of normal volume and rhythm and he is coherent Thought Process: Patient is goal-directed there is no evidence of loose association or flight of ideas Thought Content: Patient denies any visual hallucinations and states he continues to have auditory hallucinations telling him to kill himself. Patient states he still depressed and wants to stay in bed all day. He states that he is sleeping and staying in bed. He reports feeling tired with little motivation or energy to do things. Suicidal/Homicidal Ideation: Patient reports continued suicidal thoughts with a plan to cut his wrist but no intent to act while he is here and no current homicidal ideation Sensorium/Cognition: Patient is alert and oriented to person, place, and time and his recent and remote memory are grossly intact Mood/Affect: Patient's mood is depressed his affect is blunted Insight/Judgment: Patient's insight and judgment are fair Assessment: Patient continues to remain in his room does not get up to attend groups or activities and states he doesn't want to. Patient reports continuing to feel depressed, continuing to have auditory hallucinations telling him to kill himself as well as suicidal thoughts with a plan to cut his wrist but no intent to act. He states the symptoms are improving somewhat. Patient states that he contacted [employer] yesterday and the packet was faxed to them and we are awaiting a decision. Plan: Patient continue on Zyprexa 20 mg at bedtime and Wellbutrin 200 mg sustained release in the morning to target both his mood and psychotic symptoms. Patient and I discussed seeing how he responds to these medications for another day before they are increased further. Patient was encouraged to get up out of bed and attend groups or activities. Patient continues to require hospitalization to further stabilize his mood and target his psychotic symptoms.
[2018-02-20] MEDS: OLANZapine 10 MG TAB PO SCH (20:59)
[2018-02-21] MEDS: buPROPion SR 100 MG TABLET.ER PO SCH (08:58)
--- NOTE | 2018-02-21 13:48 | P.PN ---
Progress Note - Text Progress Note Date: 02/21/18 Interval History: Patient is a 32-year-old male who again was found in his bed and came to the interview room. Patient states that he continues to feel the rest still hearing voices still having suicidal ideation and states that they may be improving. Patient reports that he has not been attending groups and stays in bed all day. He states that he continues to hear voices that tell him to hurt himself, he continues to feel depressed and is unable to tell me if the symptoms are improving at all. He then later said that maybe they're getting better. Mental Status: Appearance/Attitude: Patient is casually dressed, has not been attending to his ADLs, makes intermittent eye contact and is cooperative. Behavior: Patient does not exhibit any psychomotor agitation or retardation. Speech/Language: Patient's speech is slow and in a soft voice he is coherent Thought Process: Patient is goal-directed there is no evidence of loose association or flight of ideas Thought Content: Patient states that he continues to hear voices that are telling him to hurt himself, he denies any visual hallucination and no delusions or paranoid ideation were elicited. Patient states that he still feeling depressed, unmotivated and tired. Patient states that he is eating and states he stays in bed all day. Suicidal/Homicidal Ideation: Patient reports he continues to have suicidal ideation, no current plan or intent to act and no current homicidal ideation. Sensorium/Cognition: Patient is alert and oriented to person, place, and time and his recent and remote memory are grossly intact. Mood/Affect: Patient's mood is depressed and his affect is blunted Insight/Judgment: Patient's insight and judgment are fair Assessment: Patient continues to spend his day in bed, not attending groups or activities and reports that he is unsure of his depression and suicidal thoughts are improving at all with changes in the medication. After much questioning he was able to admit that maybe they were slightly better. Patient continues to voice that he feels depressed, with no interest or energy and states he continues to hear voices telling him to hurt himself but states that he won't act on them and has no plan to do so. Patient did contact [facility] for inpatient rehab. Patient reports no side effects from his medications. Plan: Patient will continue on Zyprexa 20 mg at bedtime and Wellbutrin 200 mg in the morning sustained release and we'll reassess the need to increase his dose of Wellbutrin. Patient and I discussed that he needs to be up out of bed and attend groups and activities. Patient continues to require hospitalization to further target his psychotic symptoms and his mood.
[2018-02-21] MEDS: OLANZapine 10 MG TAB PO SCH (20:54)
[2018-02-22] MEDS: buPROPion SR 100 MG TABLET.ER PO SCH (08:27)
--- NOTE | 2018-02-22 11:56 | P.PN ---
Progress Note - Text Progress Note Date: 02/22/18 Interval History: Patient is a 32-year-old male who was seen today and he reports that he has been trying to stay up and go to groups today but was found in bed when I called him for the meeting. Patient states that his depression and anxiety continue and that he continues to hear things, telling him what ever or sit down right now or to do things. He states he continues to have suicidal thoughts. He states that he feels his depression is lessening but it still persists and he still has little energy or motivation to do things. He states he thinks about suicide but has no current plan or intent to act on. He states he still interested in going to [place] when released from the hospital. Mental Status: Appearance/Attitude: Patient is dressed in a hospital gown, makes intermittent eye contact and is cooperative Behavior: Patient does not exhibit any psychomotor agitation or retardation. Speech/Language: Patient's speech is slightly slowed of low volume and normal rhythm and he is coherent Thought Process: Patient is goal-directed there is no evidence of loose association or flight of ideas Thought Content: Patient states that he continues to hear voices that are telling him to do do things such as sit down, no further visual hallucinations and no delusions or paranoid ideation were elicited. Patient states that he still feels tired, no motivation to do things states he was trying to do more today. Patient states his appetite is good. Suicidal/Homicidal Ideation: Patient states he continues to have suicidal thoughts but no plan or intent to act and no current homicidal ideation Sensorium/Cognition: Patient is alert and oriented to person, place, and time and his recent and remote memory are grossly intact Mood/Affect: Patient's mood is depressed and his affect is blunted Insight/Judgment: Patient's insight and judgment are fair Assessment: Patient reports that his depression is improving but he continues to feel depressed, little energy to do things and states that he is still having auditory hallucinations and suicidal ideation but no plan to act on them. Patient states that he was going to try to attend groups today. Patient has not been attending groups or activities. Patient states that he is still interested in going to [place] once he is released from the hospital. Plan: Will increase patient's Zyprexa to 30 mg at bedtime to target his auditory hallucinations, increase his Wellbutrin to 300 mg XL in the morning to target his depressive symptoms. Patient states that these are the doses of medication he was on in the past. Patient was encouraged to attend groups and activities. Patient continues to require hospitalization to target his depressive and psychotic symptoms.
[2018-02-22] MEDS: OLANZapine 10 MG TAB PO SCH (20:59)
[2018-02-23] MEDS: buPROPion XL 300 MG TAB.ER.24H PO SCH (09:30)
--- NOTE | 2018-02-23 12:33 | P.PN ---
Progress Note - Text Interval history: The patient is found in his room he refuses to speak to me in an interview room. He does sit up on his bed to participate however. He describes his mood is "not so good". He does state that he feels he is doing better than when he came in at admission. We discussed his current psychotropic medications he has no questions regarding those. He indicates that the Wellbutrin and the Zyprexa have helped him in the past. He has not been attending groups. He states he will typically get up after lunch and be more social. Mental status exam: The patient is alert but tired appearing. He is dressed in hospital attire. He makes no eye contact he speaks very softly. He describes a mood that is "not so good". He is reporting no suicidal or homicidal ideation intent or plan today he states he does continue to have hallucinations at times in the form of hearing a voice. The voice does not direct self-harm or harm to others but he states it will tell him to skip group or "move over there". He demonstrates no verbal or physical aggressiveness. He demonstrates no abnormal involuntary movements. Insight and judgment limited. Plan: The patient will continue on his current medications they have just been titrated. We will monitor him for safety and encourage his participation in the milieu. He states he is awaiting a placement date for inpatient chemical dependency treatment.
[2018-02-23] MEDS: OLANZapine 10 MG TAB PO SCH (20:38)
[2018-02-24] MEDS: buPROPion XL 300 MG TAB.ER.24H PO SCH (09:07)
--- NOTE | 2018-02-24 10:14 | P.PN ---
Progress Note - Text Interval history: The patient is found in his room he prefers not to go to an interview room. He reports that his mood is much improved today and states "it' s the total opposite from yesterday". He describes having no auditory hallucinations he denies having any suicidal thoughts. He reports having some feelings of anxiety. The patient's continues to isolate in his room for the most part although he did go down for breakfast this morning. Yesterday he was observed out of his room in the afternoon. He has no questions or concerns regarding his medication. Mental status exam: The patient is lying in bed he was verbally arousable he was cooperative in answering questions today. Hygiene is adequate he is dressed in his own clothing. He has brief eye contact. He reports his mood is much improved. He is reporting no suicidal or homicidal ideation intent or plan. He reports no auditory hallucinations today. He reports feeling safe. He demonstrates no verbal or physical aggressiveness. Insight and judgment are improving. Affect is constricted. He does not appear hypomanic or manic. Plan: The patient will continue on his current medication is encouraged to participate in the milieu. He is noting an improvement of symptoms. We will monitor him for safety vital signs reviewed.
[2018-02-24] MEDS: OLANZapine 10 MG TAB PO SCH ×2 (21:17→21:19)
[2018-02-25] MEDS: buPROPion XL 300 MG TAB.ER.24H PO SCH (09:20)
--- NOTE | 2018-02-25 10:48 | P.PN ---
Progress Note - Text Progress Note Date: 02/25/18 Interval History: Patient is a 32-year-old male who was seen today. Patient was again in his bed sleeping when approached. Patient states that he is improved, no longer reporting hearing voices or feeling suicidal. Patient reported that he is doing better and is not as depressed. He states that he is having a hard time sleeping and attended 1 group yesterday. He reports his appetite is good. Patient continues to want to go to [facility] after discharge. Patient reports no side effects from his current medication. Patient at the end of the interview complained of feeling anxious which she could not elaborate on and was requesting benzodiazepines Mental Status: Appearance/Attitude: Patient is casually dressed, found sleeping in his room and after several attempts to awaken him and eventually came to the interview room made intermittent eye contact and was cooperative. Behavior: Patient does not exhibit any psychomotor agitation or retardation. Speech/Language: Patient's speech is spontaneous of normal volume and rhythm and he is coherent. Thought Process: Patient is goal-directed there is no evidence of loose association or flight of ideas Thought Content: Patient denies any auditory or visual hallucinations and no delusions or paranoid ideation were elicited. Patient states that he is feeling better, his depression is improving and he complained that he didn't sleep well last night but it is documented he slept for 7 hours. Patient states that he attended 1 group yesterday. States that his appetite is good. Patient states that he is feeling anxious but could not elaborate and requested benzodiazepines for this. Suicidal/Homicidal Ideation: Patient denied any current suicidal or homicidal ideation. Sensorium/Cognition: Patient is alert and oriented to person, place, and time and his recent and remote memory are grossly intact Mood/Affect: Patient's mood is less depressed his affect remains slightly blunted Insight/Judgment: Patient's insight and judgment are fair Assessment: Patient presents stating that he is doing better and not feeling as depressed and reports no auditory hallucinations and no suicidal thoughts. He is been sleeping about 7 hours a night and attended 1 group yesterday. Patient continues to spend the bulk of his time in bed in his room. He reports that his appetite is good and no side effects from the medication. Patient reports that he still interested in a referral for [facility]. Plan: Patient continue on Wellbutrin 300 mg extended release in the morning and Zyprexa 30 mg at bedtime which appear to be effective at this point. Patient and I discussed [facility] and he continues to show interest in going there after discharge will follow-up with this. Patient can be discharged in the next several days.
[2018-02-25] MEDS: OLANZapine 10 MG TAB PO SCH (22:35)
[2018-02-26 06:22] VITALS: TEMP 97.7
[2018-02-26] MEDS: buPROPion XL 300 MG TAB.ER.24H PO SCH (09:25)
[2018-02-26 09:41] VITALS: BMI 28.2
--- NOTE | 2018-02-26 13:48 | P.PN ---
Progress Note - Text Progress Note Date: 02/26/18 Interval History: Patient is a 32-year-old male who was seen today in the office. He reported that he was doing better, his mood was improving and his outlook was more positive. He denied any auditory hallucinations and denied any suicidal ideation. He states he did take his medication last night. Patient states that he has not attended any groups. I stated to him that [facility] has declined him. Patient stated that he was fine with that. Mental Status: Appearance/Attitude: Patient is casually dressed and makes good eye contact and was cooperative. Behavior: Patient did not exhibit any psychomotor agitation or retardation. Speech/Language: Patient's speech was spontaneous of normal volume and rhythm and he was coherent. Thought Process: Patient was goal-directed there is no evidence of loose association or flight of ideas Thought Content: Patient denied any auditory or visual hallucinations and stated that he was not having any paranoid or delusional ideation. He stated that his mood was improving and his outlook was more positive. He reports that he feels he is doing better and that the medications have been beneficial. He states that he continues to not attend groups or activities. Patient states that he was sleeping about 6 hours at night. Suicidal/Homicidal Ideation: Patient denies any current suicidal or homicidal ideation Sensorium/Cognition: Patient is alert and oriented to person, place, and time and his recent and remote memory are grossly intact. Mood/Affect: Patient's mood is improving and is less depressed and his affect is slightly brighter Insight/Judgment: Patient's insight and judgment are fair. Assessment: Patient and I discussed the fact that [facility] has declined to accept him and he stated that he was fine with that. Patient reports that his mood is improving and he is doing better and stated he was more positive in his outlook denied any suicidal ideation or auditory hallucinations. When we discussed discharge plans he stated he would go live with a family member but was unable to identify who this would be. Patient has not been attending groups or activities and spends his day in his room. Patient is sleeping about 6 hours a night Plan: Patient continue on Zyprexa 30 mg at bedtime and Wellbutrin extended- release 3 mg in the morning and patient and I discussed discharge plans for tomorrow and the need to inform us of which family member he is planning to go live with. Patient states that he was agreeable with the plan for discharge tomorrow.
[2018-02-26] MEDS: OLANZapine 10 MG TAB PO SCH (21:22)
[2018-02-27 06:50] VITALS: BP 109/56; PULSE 71; RESP 14
--- NOTE | 2018-02-27 10:00 | P.DS ---
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 Patient states that he was feeling increasingly depressed and had suicidal thoughts with a plan to cut his wrist and so took the bus to the emergency room. He states he has not followed up with [facility] and was last seen by them at the end of December. He states that he ran out of his medications because he missed his appointment on January 24. Patient had recently been in [facility] and was discharged several weeks ago following a charge of retail fraud. He states that he is not currently on probation. Patient states that he also began using methamphetamine after his discharge from [facility] and did use marijuana as well as methadone prior to his admission. Patient states he was supposed to be taking Wellbutrin 150 mg sustained release in the morning and Zyprexa 5 morning 20 at night but it is unclear to me if he has not been on these for 2 weeks or longer than that. Of time patient is unsure. Patient states that since he's been off the medication his depression is returned and he is crying feeling hopeless and helpless and has not been sleeping and feeling tired with the decreased appetite. Patient states he's been having suicidal thoughts and a plan to cut himself. He states his anxiety has also increased with panic attacks with hyperventilation and he states these occur in a daily basis. He reports that he has also had a return of paranoia any suspicious of everybody and has having auditory hallucinations telling him to hurt himself and making derogatory comments about him. Patient states that he's been using meth every day for last several months and used in the past and used methadone only on one occasion. Patient states when he was on his medication he thinks that he was doing fairly well. Patient states that when he uses the methamphetamine makes him feel on top of the world but does make him feel paranoid and suspicious. Patient states his symptoms began after he began using methamphetamine when he began to feel paranoid, feeling top of the world when intoxicated and depressed when he came off the drug. Mental status on Admission: Appearance/Attitude: Patient is dressed in a hospital gown, makes good eye contact and was cooperative Behavior: Patient does not exhibit any psychomotor agitation or retardation. Speech/Language: Patient's speech is slightly slowed and his speech is spontaneous of normal rhythm and he is coherent Thought Process: Patient is goal-directed and there is no evidence of loose association or flight of ideas Thought Content: Patient reports auditory hallucinations that are telling him to hurt himself and making derogatory comments, he denies any visual hallucinations. Patient reports that he is suspicious and paranoid that people are out to get him and hurt him. He also reports that he has panic attacks where he has difficulty breathing and states this occurs on a daily basis. Patient reports that he has not been sleeping and feeling tired and exhausted and his appetite has been decreased. Suicidal/Homicidal Ideation: Patient reports that he currently is still feeling suicidal and had a plan to cut his wrist and denies any current homicidal ideation Sensorium/Cognition: Patient is alert and oriented to person, place, and time and his recent and remote memory are grossly intact. Mood/Affect: patient's mood is depressed and his affect is blunted Insight/Judgment: patient's insight and judgment are fair Hospital Course: Patient was admitted on a voluntary basis, placed on routine observation and group and activity therapy were ordered. Patient had routine laboratory studies as well as a medical consultation. Patient was restarted on his prior medications as he voiced that they have been beneficial to him in the past. Patient states that he been using methamphetamine to make himself feel on top of the world but then begins to feel depressed, paranoid and suspicious. Patient was restarted on Zyprexa and Wellbutrin which were slowly titrated to a dose of 30 mg of Zyprexa at bedtime and Wellbutrin 300 mg extended release in the morning. Patient's medications were titrated as the patient continued to verbalize auditory hallucinations, suicidal thoughts and when the doses were reached as stated above the patient voiced no longer hearing voices, longer feeling paranoid and depressed as well as no longer having suicidal thoughts. Patient had called for an intake at [facility] but he was declined on 2 occasions. Patient did not attend groups or activities while he was on the inpatient unit spending most of his time in bed. Patient had no appetite or sleep disturbance. Patient was encouraged to avoid all alcohol and drugs when he left the unit and he felt that he was ready for discharge and stated that he was going to contact his mother to see if he could return to live with her. Patient reported no side effects from the medication. Allergies No Known Allergies Allergy (Verified 02/14/18 09:32) Laboratory Last Values WBC 6.1 k/uL (3.8-10.6) 02/15/18 14:02 RBC 4.87 m/uL (4.30-5.90) 02/15/18 14:02 Hgb 15.1 gm/dL (13.0-17.5) 02/15/18 14:02 Hct 41.5 % (39.0-53.0) 02/15/18 14:02 MCV 85.2 fL (80.0-100.0) 02/15/18 14:02 MCH 31.0 pg (25.0-35.0) 02/15/18 14:02 MCHC 36.3 g/dL (31.0-37.0) 02/15/18 14:02 RDW 12.6 % (11.5-15.5) 02/15/18 14:02 Plt Count 293 k/uL (150-450) 02/15/18 14:02 Neutrophils % 61 % 02/15/18 14:02 Lymphocytes % 25 % 02/15/18 14:02 Monocytes % 9 % 02/15/18 14:02 Eosinophils % 1 % 02/15/18 14:02 Basophils % 0 % 02/15/18 14:02 Neutrophils # 3.8 k/uL (1.3-7.7) 02/15/18 14:02 Lymphocytes # 1.5 k/uL (1.0-4.8) 02/15/18 14:02 Monocytes # 0.5 k/uL (0-1.0) 02/15/18 14:02 Eosinophils # 0.1 k/uL (0-0.7) 02/15/18 14:02 Basophils # 0.0 k/uL (0-0.2) 02/15/18 14:02 Sodium 137 mmol/L (137-145) 02/15/18 14:02 Potassium 4.0 mmol/L (3.5-5.1) 02/15/18 14:02 Chloride 94 mmol/L (98-107) L 02/15/18 14:02 Carbon Dioxide 32 mmol/L (22-30) H 02/15/18 14:02 Anion Gap 11 mmol/L 02/15/18 14:02 BUN 17 mg/dL (9-20) 02/15/18 14:02 Creatinine 1.09 mg/dL (0.66-1.25) 02/15/18 14:02 Est GFR (CKD-EPI)AfAm >90 (>60 ml/min/1.73 sqM) 02/15/18 14:02 Est GFR (CKD-EPI)NonAf 88 (>60 ml/min/1.73 sqM) 02/15/18 14:02 Glucose 122 mg/dL (74-99) H 02/15/18 14:02 Calcium 9.5 mg/dL (8.4-10.2) 02/15/18 14:02 Total Bilirubin 0.8 mg/dL (0.2-1.3) 02/15/18 14:02 AST 37 U/L (17-59) 02/15/18 14:02 ALT 50 U/L (21-72) 02/15/18 14:02 Alkaline Phosphatase 86 U/L (38-126) 02/15/18 14:02 Total Protein 6.7 g/dL (6.3-8.2) 02/15/18 14:02 Albumin 4.2 g/dL (3.5-5.0) 02/15/18 14:02 Triglycerides 217 mg/dL (<150) H 02/15/18 14:02 Cholesterol 191 mg/dL (<200) 02/15/18 14:02 LDL Cholesterol, Calc 111 mg/dL (0-99) H 02/15/18 14:02 HDL Cholesterol 37 mg/dL (40-60) L 02/15/18 14:02 TSH 0.859 mIU/L (0.465-4.680) 02/15/18 14:02 Urine Color Yellow 02/17/18 12:45 Urine Appearance Clear (Clear) 02/17/18 12:45 Urine pH 6.5 (5.0-8.0) 02/17/18 12:45 Ur Specific [place] 1.018 (1.001-1.035) 02/17/18 12:45 Urine Protein Trace (Negative) H 02/17/18 12:45 Urine Glucose (UA) 4+ (Negative) H 02/17/18 12:45 Urine Ketones Negative (Negative) 02/17/18 12:45 Urine Blood Negative (Negative) 02/17/18 12:45 Urine Nitrite Negative (Negative) 02/17/18 12:45 Urine Bilirubin Negative (Negative) 02/17/18 12:45 Urine Urobilinogen 4.0 mg/dL (<2.0) 02/17/18 12:45 Ur Leukocyte Esterase Negative (Negative) 02/17/18 12:45 Urine Opiates Screen Not Detected (NotDetected) 02/14/18 10:00 Ur Oxycodone Screen Not Detected (NotDetected) 02/14/18 10:00 Urine Methadone Screen Detected (NotDetected) H 02/14/18 10:00 Ur Propoxyphene Screen Not Detected (NotDetected) 02/14/18 10:00 Ur Barbiturates Screen Not Detected (NotDetected) 02/14/18 10:00 U Tricyclic Antidepress Not Detected (NotDetected) 02/14/18 10:00 Ur Phencyclidine Scrn Not Detected (NotDetected) 02/14/18 10:00 Ur Amphetamines Screen Detected (NotDetected) H 02/14/18 10:00 U Methamphetamines Scrn Detected (NotDetected) H 02/14/18 10:00 U Benzodiazepines Scrn Not Detected (NotDetected) 02/14/18 10:00 Urine Cocaine Screen Not Detected (NotDetected) 02/14/18 10:00 U Marijuana (THC) Screen Detected (NotDetected) H 02/14/18 10:00 Discharge Mental Status: Appearance/Attitude: Patient is casually dressed, appears slightly disheveled and was awakened in his room to come to the interview room and makes intermittent eye contact and is cooperative. Behavior: Patient does not exhibit any psychomotor agitation or retardation. Speech/Language: Patient's speech is spontaneous of normal volume and rhythm and he is coherent. Thought Process: Patient's responses to questions are brief, there is no evidence of loose association or flight of ideas. Thought Content: Patient denies any auditory or visual hallucinations and no delusions or paranoid ideation or elicited. Patient states that he is stating his room because he has no interest in attending groups or activities. Patient is sleeping and eating well. Patient reports that he is no longer feeling paranoid or suspicious. Suicidal/Homicidal Ideation: Patient denies any current suicidal or homicidal ideation. Sensorium/Cognition: Patient is alert and oriented to person, place, and time and his recent and remote memory are grossly intact. Mood/Affect: Patient's mood is less depressed and his affect is slightly blunted Insight/Judgment: Patient's insight and judgment are fair Risk Assessment: Patient's risk for readmission is moderate due to not comply with follow-up care and medications and restart using drugs and/or alcohol Discharge Plan: Patient will be discharged to live with his mother, he will continue on Zyprexa 30 mg at bedtime and Wellbutrin extended-release 300 mg in the morning and will be given prescriptions for these medications. Patient was encouraged to follow-up and be compliant with medications and he will follow up with [facility]. Patient was also advised to avoid all alcohol and drugs. Patient Condition at Discharge: Stable Plan - Discharge Summary New Discharge Prescriptions: New buPROPion XL [Wellbutrin XL] 300 mg PO DAILY #14 tab.er.24h OLANZapine [ZyPREXA] 15 mg PO HS #28 tablet Discontinued buPROPion HCL [Wellbutrin XL] 150 mg PO HS OLANZapine [ZyPREXA] 20 mg PO HS OLANZapine [ZyPREXA] 5 mg PO QAM Discharge Medication List OLANZapine [ZyPREXA] 15 mg PO HS #28 tablet 02/27/18 [Rx] buPROPion XL [Wellbutrin XL] 300 mg PO DAILY #14 tab.er.24h 02/27/18 [Rx] Follow up Appointment(s)/Referral(s): [facility]] - 03/07/18 9:00 am (03-07-18 @ 9:00 with Meseret Kirk 03-07-18 @ 10:[address] Maier 03-11-18 @ 3:00 with Checo Muhammad ) None,Stated [Primary Care Provider] - 1-2 days Patient Instructions/Handouts: Depression (DC), Suicide Prevention for Adults ( DC) Activity/Diet/Wound Care/Special Instructions: Activity and diet as tolerated. Avoid the use of street drugs and alcohol. Remove all firearms from home. Take all medications as prescribed. When you are in need of refills of your medication please contact your medical provider and/ or outpatient psychiatrist to have this done. Please go to scheduled outpatient appointment for aftercare. If symptoms return or become worse you can call the Crisis Line at and/or go to the nearest emergency room for an evaluation. Discharge Disposition: HOME SELF-CARE
[2018-02-27] MEDS: buPROPion XL 300 MG TAB.ER.24H PO SCH (10:27)
== END 2018-02-27 15:17 | disposition home or self-care (01) | DRG 897 ==
LOC: EC 08:51 → 3MHU 13:49
PROVIDERS: ADMIT Psychiatry & Neurology Psychiatry; ATTEND Psychiatry & Neurology Psychiatry
DX: F15.94 Other stimulant use, unspecified with stimulant-induced mood disorder (principal); R45.851 Suicidal ideations; F41.0 Panic disorder [episodic paroxysmal anxiety]; F90.9 Attention-deficit hyperactivity disorder, unspecified type; G43.909 Migraine, unspecified, not intractable, without status migrainosus; G89.29 Other chronic pain; J30.2 Other seasonal allergic rhinitis; M54.9 Dorsalgia, unspecified; F12.90 Cannabis use, unspecified, uncomplicated; Z79.899 Other long term (current) drug therapy; Z87.442 Personal history of urinary calculi; Z91.5 Personal history of self-harm
CPT/HCPCS: 80053; 80061; 80306; 81003; 82075; 84443; 85025; 99285

== ENCOUNTER 2018-05-22 14:20 | Inpatient (IN) | payer MEDICAID, OTHER ==
--- NOTE | 2018-05-22 15:00 | ED ---
Psych HPI - General Chief Complaint: Psychiatric Symptoms Stated Complaint: Mental health Time Seen by Provider: 05/22/18 14:35 Source: patient, RN notes reviewed Mode of arrival: ambulatory Limitations: no limitations - History of Present Illness Initial Comments: This a 33-year-old male presents emergency Department chief complaint of depression, suicidal ideation. Patient has history of depression symptoms and have worsened recently.. Patient states he does have history of drug abuse including methamphetamines recently. Patient states he occasionally drinks alcohol denies any abuse. Denies any physical complaints. Patient is not forthcoming information at this time. Patient denies any homicidal ideation. Denies any physical complaints - Related Data Previous Rx's Medication Instructions Recorded OLANZapine [ZyPREXA] 15 mg PO HS #28 tablet 02/27/18 buPROPion XL [Wellbutrin XL] 300 mg PO DAILY #14 tab.er.24h 02/27/18 Allergies Allergy/AdvReac Type Severity Reaction Status Date / Time No Known Allergies Allergy Verified 05/22/18 14:55 Review of Systems ROS Statement: Those systems with pertinent positive or pertinent negative responses have been documented in the HPI. ROS Other: All systems not noted in ROS Statement are negative. Past Medical History Past Medical History: No Reported History Additional Past Medical History / Comment(s): chronic back pain, migraine, seasonal ALLERGIES, kidney stones History of Any Multi-Drug Resistant Organisms: None Reported Past Surgical History: No Surgical Hx Reported Additional Past Surgical History / Comment(s): Oral Surgery 1990s, per patient. Past Anesthesia/Blood Transfusion Reactions: No Reported Reaction Past Psychological History: ADD/ADHD, Anxiety, Depression Smoking Status: Never smoker Past Alcohol Use History: None Reported Past Drug Use History: Heroin, Marijuana, Methamphetamine, Opiates, Prescription Drug Abuse - Past Family History Father Family Medical History: No Reported History Additional Family Medical History / Comment(s): Father is approximately 50 years of age. Patient has no contact with his father. Mother Family Medical History: No Reported History Additional Family Medical History / Comment(s): Mother is age 48 and healthy with no major medical problems. Sister(s) Family Medical History: No Reported History Additional Family Medical History / Comment(s): He has 2 sisters with no major medical problems. Patient does not have any brothers. General Exam Limitations: no limitations General appearance: alert, in no apparent distress Head exam: Present: atraumatic, normocephalic, normal inspection Eye exam: Present: normal appearance, PERRL, EOMI. Absent: scleral icterus, conjunctival injection, periorbital swelling ENT exam: Present: normal exam, normal oropharynx, mucous membranes moist Neck exam: Present: normal inspection. Absent: tenderness, meningismus, lymphadenopathy Respiratory exam: Present: normal lung sounds bilaterally. Absent: respiratory distress, wheezes, rales, rhonchi, stridor Cardiovascular Exam: Present: regular rate, normal rhythm, normal heart sounds. Absent: systolic murmur, diastolic murmur, rubs, gallop, clicks Neurological exam: Present: alert, oriented X3, CN II-XII intact Psychiatric exam: Present: depressed, other (Patient will not make good eye contact) Skin exam: Present: warm, dry, intact, normal color. Absent: rash Course Vital Signs 05/22/18 14:30 Temperature 98.9 F Pulse Rate 109 H Respiratory 16 Rate Blood Pressure 138/91 O2 Sat by Pulse 96 Oximetry Medical Decision Making - Medical Decision Making Patient was evaluated by EPS and will be admitted to psychiatric unit. - Lab Data Lab Results 05/22/18 Range/Units 15:14 Urine Opiates Screen Not Detected (NotDetected) Ur Oxycodone Screen Not Detected (NotDetected) Urine Methadone Screen Not Detected (NotDetected) Ur Propoxyphene Screen Not Detected (NotDetected) Ur Barbiturates Screen Not Detected (NotDetected) U Tricyclic Antidepress Not Detected (NotDetected) Ur Phencyclidine Scrn Not Detected (NotDetected) Ur Amphetamines Screen Detected H (NotDetected) U Methamphetamines Scrn Detected H (NotDetected) U Benzodiazepines Scrn Not Detected (NotDetected) Urine Cocaine Screen Detected H (NotDetected) U Marijuana (THC) Screen Not Detected (NotDetected) Disposition Clinical Impression: Depression, Suicidal ideation, Drug abuse and dependence Disposition: TRANSFER TO PSYCH HOSP/UNIT Condition: Stable Referrals: None,Stated [Primary Care Provider] - 1-2 days
[2018-05-22 15:31] LABS: Amphetamine Screen,Urine Detected (NotDetected); Barbiturate Screen,Urine Not Detected (NotDetected); Benzodiazepines Screen,Urine Not Detected (NotDetected); Cocaine Screen,Urine Detected (NotDetected); Methadone Screen, Urine Not Detected (NotDetected); Opiate Screen,Urine Not Detected (NotDetected); Oxycodone Screen, Urine Not Detected (NotDetected); Phencyclidine Screen,Urine Not Detected (NotDetected); Tricyclic Antidepressant,Urine Not Detected (NotDetected); Urn Cannabinoid Scrn Not Detected (NotDetected)
[2018-05-22] MEDS ORDERED: MAGNESIUM HYDROXIDE 2,400 MG/10 ML CUP PO PRN (18:16)
[2018-05-22] MEDS ORDERED: ZIPRASIDONE 20 MG VIAL IM PRN (18:16)
[2018-05-22] MEDS ORDERED: MAG HYDROX/AL HYDROX/SIMETH 30 ML CUP PO PRN (18:16)
[2018-05-22] MEDS ORDERED: ACETAMINOPHEN TAB 325 MG TAB PO PRN (18:16)
[2018-05-22] MEDS ORDERED: LORazepam 2 MG/ML INJ IM PRN (18:20)
[2018-05-22] MEDS: NICOTINE 14MG/24HR PATCH TRANSDERM SCH ×2 (18:28→19:44)
--- NOTE | 2018-05-23 01:11 | P.CONS ---
History of Present Illness - Reason for Consult Consult date: 05/23/18 - Chief Complaint Suicidal ideation - History of Present Illness The patient is a 33 yo M with the PMH of depression presented to the ED w/ complaints of depressive symptoms and thoughts of self-harm. The patient was seen in the psychiatric unit. He notes that he had recently had difficulty with his family and was thereby finding it hard to cope. He endorsed using methamphetamine 2 weeks ago but otherwise denied any other substance abuse. He otherwise denied having any medical problems and was free of active complaints. Notes continues depressive thoughts but denied any homicidal ideation. Further denied chest pain, SOB, palpitations, fever, cough, fever, or chills. He further denied nausea, vomiting, abdominal pain, diarrhea, constipation, dysuria , headache, or visual disturbances. Pt admitted to psychiatric unit for further monitoring. UTox positive for cocaine. Review of Systems Pertinent positives and negatives as discussed in HPI, a complete review of systems was performed and all other systems are negative. Past Medical History Past Medical History: No Reported History Additional Past Medical History / Comment(s): chronic back pain, migraine, seasonal ALLERGIES, kidney stones History of Any Multi-Drug Resistant Organisms: None Reported Past Surgical History: No Surgical Hx Reported Additional Past Surgical History / Comment(s): Oral Surgery 1990s, per patient. Past Anesthesia/Blood Transfusion Reactions: No Reported Reaction Past Psychological History: ADD/ADHD, Anxiety, Depression Smoking Status: Never smoker Past Alcohol Use History: None Reported Past Drug Use History: Heroin, Marijuana, Methamphetamine, Opiates, Prescription Drug Abuse - Past Family History Father Family Medical History: No Reported History Additional Family Medical History / Comment(s): Father is approximately 50 years of age. Patient has no contact with his father. Mother Family Medical History: No Reported History Additional Family Medical History / Comment(s): Mother is age 48 and healthy with no major medical problems. Sister(s) Family Medical History: No Reported History Additional Family Medical History / Comment(s): He has 2 sisters with no major medical problems. Patient does not have any brothers. Medications and Allergies Home Medications Medication Instructions Recorded Confirmed Type OLANZapine [ZyPREXA] 15 mg PO HS #28 tablet 02/27/18 05/22/18 Rx buPROPion XL [Wellbutrin XL] 300 mg PO DAILY #14 tab.er.24h 02/27/18 05/22/18 Rx Allergies Allergy/AdvReac Type Severity Reaction Status Date / Time No Known Allergies Allergy Verified 05/22/18 14:55 Physical Exam Vitals: Vital Signs Temp Pulse Pulse Resp BP BP Pulse Ox 05/22/18 17:55 98.2 F 88 16 125/82 05/22/18 17:14 98.1 F 68 18 137/86 100 05/22/18 14:30 98.9 F 109 H 16 138/91 96 Intake and Output 05/22/18 05/22/18 05/23/18 14:59 22:59 06:59 Other: Weight 83.915 kg General: [non toxic], [no distress], [appears at stated age], [normal weight] Derm: [no unusual rashes/lesions] [no unusual ecchymoses], [warm], [dry] Head: [atraumatic], [normocephalic], [symmetric] Eyes: [EOMI], [no lid lag], [anicteric sclera], [pupils equal round reactive to light] ENT: [Nose and ears atraumatic], [no thrush], [no pharyngeal erythema], poor dentition Neck: [No thyromegaly], [no cervical lymphadenopathy], [trachea midline], [ supple] Mouth: [no lip lesion], [mucus membranes moist] Cardiovascular: [S1S2 reg], [no murmur], [positive posterior tibial pulse bilateral], [no edema], [capillary refill less than 2 seconds] Lungs: [CTA bilateral], [no rhonchi, no rales] , [no accessory muscle use] Abdominal: [soft], [ nontender to palpation], [no guarding], [no appreciable organomegaly], [normal bowel sounds] Ext: [no gross muscle atrophy], [muscle strength 5 out of 5 in all 4 extremities grossly], [no contractures], Neuro: [ CN II-XI grossly intact], [light touch intact all 4 extremities], [ finger to nose within normal limits], Psych: [Alert], [oriented], [flat affect] Results Labs: Abnormal Lab Results - Last 24 Hours (Table) 05/22/18 Range/Units 15:14 Ur Amphetamines Screen Detected H (NotDetected) U Methamphetamines Scrn Detected H (NotDetected) Urine Cocaine Screen Detected H (NotDetected) Assessment and Plan Plan: Cocaine and Amphetamine abuse - Monitor for signs of withdrawal - Avoid Beta-blockers Active smoker - Nicotine patch Suicidality and depression - As per psychiatry DVT//GI - No indications for prophylaxis Thank you for allowing us to participate in the care of this patient. We will follow peripherally. Do not hesitate to contact us with questions. Someone can be reached from the [facility] hospitalist group at all hours of the day at [phone].
[2018-05-23] MEDS: NICOTINE 14MG/24HR PATCH TRANSDERM SCH (08:39)
[2018-05-23 10:21] LABS: Basophils % (A) 0 %; Eosinophils % (A) 1 %; HCT 47.1 % (39.0-53.0); HGB 16.5 gm/dL (13.0-17.5); Lymphocytes # (A) 1.7 k/uL (1.0-4.8); Lymphocytes % (A) 38 %; MCH 31.1 pg (25.0-35.0); MCV 88.9 fL (80.0-100.0); Mean Platelet Volume 7.2; Monocytes # (A) 0.5 k/uL (0-1.0); Monocytes % (A) 10 %; Neutrophils # (A) 2.1 k/uL (1.3-7.7); Neutrophils % (A) 47 %; Platelet Count 293 k/uL (150-450); RDW 12.2 % (11.5-15.5); WBC 4.4 k/uL (3.8-10.6)
[2018-05-23 11:04] LABS: ALT 71 U/L (21-72); AST 51 U/L (17-59); Alkaline Phosphatase 72 U/L (38-126); Anion Gap 8 mmol/L; Bilirubin, Delta 0.2 mg/dL (0.0-0.2); Bilirubin,Unconjugated 0.7 mg/dL (0.0-1.1); Blood Urea Nitrogen 15 mg/dL (9-20); Calcium 9.5 mg/dL (8.4-10.2); Carbon Dioxide 36 mmol/L (22-30); Chloride 93 mmol/L (98-107); Cholesterol 202 mg/dL (<200); Glucose 84 mg/dL (74-99); HDL Cholesterol 31 mg/dL (40-60); LDL Cholesterol,Calculated 139 mg/dL (0-99); Potassium 3.6 mmol/L (3.5-5.1); Sodium 137 mmol/L (137-145); Total Bilirubin 0.9 mg/dL (0.2-1.3); Total Protein 6.9 g/dL (6.3-8.2); Triglycerides 162 mg/dL (<150)
--- NOTE | 2018-05-23 11:58 | P.HP ---
Psychiatric H&P - . H&P Date: 05/23/18 History & Physical: Allergies Allergy/AdvReac Type Severity Reaction Status Date / Time No Known Allergies Allergy Verified 05/22/18 14:55 Vital Signs Temp 97.8 F 05/23/18 06:34 Pulse 69 05/23/18 06:34 Resp 14 05/23/18 06:34 BP 120/70 05/23/18 06:34 Pulse Ox 99 05/23/18 06:34 Intake & Output 05/22/18 05/23/18 05/23/18 18:59 06:59 18:59 Weight 83.915 kg Laboratory Last Values Urine Opiates Screen Not Detected (NotDetected) 05/22/18 15:14 Ur Oxycodone Screen Not Detected (NotDetected) 05/22/18 15:14 Urine Methadone Screen Not Detected (NotDetected) 05/22/18 15:14 Ur Propoxyphene Screen Not Detected (NotDetected) 05/22/18 15:14 Ur Barbiturates Screen Not Detected (NotDetected) 05/22/18 15:14 U Tricyclic Antidepress Not Detected (NotDetected) 05/22/18 15:14 Ur Phencyclidine Scrn Not Detected (NotDetected) 05/22/18 15:14 Ur Amphetamines Screen Detected (NotDetected) H 05/22/18 15:14 U Methamphetamines Scrn Detected (NotDetected) H 05/22/18 15:14 U Benzodiazepines Scrn Not Detected (NotDetected) 05/22/18 15:14 Urine Cocaine Screen Detected (NotDetected) H 05/22/18 15:14 U Marijuana (THC) Screen Not Detected (NotDetected) 05/22/18 15:14 Assessment and Plan Assessment: General Chief Complaint: Psychiatric Symptoms Stated Complaint: Mental health Time Seen by Provider: 05/22/18 14:35 Source: patient, RN notes reviewed Mode of arrival: ambulatory Limitations: no limitations - History of Present Illness Initial Comments: This a 33-year-old male presents emergency Department chief complaint of depression, suicidal ideation. Patient has history of depression symptoms and have worsened recently.. Patient states he does have history of drug abuse including methamphetamines recently. Patient states he occasionally drinks alcohol denies any abuse. Denies any physical complaints. Patient is not forthcoming information at this time. Patient denies any homicidal ideation. Denies any physical complaints Past Medical History Past Medical History: No Reported History Additional Past Medical History / Comment(s): chronic back pain, migraine, seasonal ALLERGIES, kidney stones History of Any Multi-Drug Resistant Organisms: None Reported Past Surgical History: No Surgical Hx Reported Additional Past Surgical History / Comment(s): Oral Surgery 1990s, per patient. Past Anesthesia/Blood Transfusion Reactions: No Reported Reaction Past Psychological History: ADD/ADHD, Anxiety, Depression Smoking Status: Never smoker Past Alcohol Use History: None Reported Past Drug Use History: Heroin, Marijuana, Methamphetamine, Opiates, Prescription Drug Abuse Past Psychiatric History: This will be the patient's fifth admission he was admitted last year in May 2017 and had 3 admissions in 2016. Patient has been on Seroquel Abilify Wellbutrin and Zyprexa. Patient has a history of 2 prior suicide attempts by cutting his wrists. Past Medical/Surgical History: Patient reports back pain as his only health complaint and no surgeries Family History: Patient denies a family history of any psychiatric disorders no alcohol or substance abuse disorders andcompleted suicides Social History: Patient was born and raised to parents who never and he has 2 sisters. He completed high school and attended 1 semester at college but started using drugs, cocaine and dropped out of school. 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 He states since that time he has been unable to hold a job. He was working at [employer] but lost his job when he was discharged due to his use of drugs. Patient states that since he was released from [facility] he's been living with friends and has no source of financial support. The patient has never been and has no children. Patient denies any abuse history. Substance Use History: Patient states that he does not use alcohol. He states that he began using cocaine at the age of 17 but does not currently use. He began using methamphetamine at the age of 27 and uses daily on a daily basis and has been using it daily for the last several weeks. Patient states that he is used opiate medication purchased on the street in the past. Patient states that he also abused amphetamines purchased on the street since the age of 22. Patient states he is also abused benzodiazepines, Xanax purchased on the street and last used on one occasion recently. Patient also reports one use of methadone recently. He denies any IV drug use hallucinogenic drug use. Patient reports no tobacco products use Legal History: Patient was charged with retail fraud and was [facility] in [facility] from [facility] home after serving 5-1/2 months. After that he went to [facility] and was just recently released. He is not currently on probation Mental status: Appearance/Attitude: Patient is dressed in a hospital gown, makes good eye contact and was cooperative Behavior: Patient does not exhibit any psychomotor agitation or retardation. Speech/Language: Patient's speech is slightly slowed and his speech is spontaneous of normal rhythm and he is coherent Thought Process: Patient is goal-directed and there is no evidence of loose association or flight of ideas Thought Content: Patient reports auditory hallucinations that are telling him to hurt himself and making derogatory comments, he denies any visual hallucinations. Patient reports that he is suspicious and paranoid that people are out to get him and hurt him. He also reports that he has panic attacks where he has difficulty breathing and states this occurs on a daily basis. Patient reports that he has not been sleeping and feeling tired and exhausted and his appetite has been decreased. Suicidal/Homicidal Ideation: Patient reports that he currently is still feeling suicidal and had a plan to cut his wrist and denies any current homicidal ideation Sensorium/Cognition: Patient is alert and oriented to person, place, and time and his recent and remote memory are grossly intact. Mood/Affect: patient's mood is depressed and his affect is blunted Insight/Judgment: patient's insight and judgment are fair Intellectual Functioning: patient's intellectual functioning appears average Strength/Weakness: patient continues to use drugs, lack of financial support does have housing Assessment: patient has a history of using methamphetamine and states that he began to have his symptoms of depression, auditory hallucinations and paranoia after he began using methamphetamine at the age of 27. Patient states that he was in [facility] and once released began using drugs specifically methamphetamine and marijuana again. Patient states he also missed his last appointment at [facility] and ran out of his medications which had been effective when he was taking them. Patient now presents with symptoms of auditory hallucinations, paranoia and depression with the decrease in his energy appetite and sleep. He states he's feeling hopeless and helpless and reported suicidal ideation with a plan to cut his wrists. Patient has a history of attempting suicide twice in the past. 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 Patient also had routine laboratory studies as well as a medical consultation. Patient and I discussed his response to both the Wellbutrin and Zyprexa in the past and he stated that it was good. Patient will be restarted on Wellbutrin 150 mg sustained release in the morning and Invega 3 mg mg at bedtime to target both his depressive and psychotic symptoms. I reviewed the use and side effects of the medications with the patient. I Patient and I also discussed a referral for inpatient substance use treatment and he was agreeable with this. Patient requires hospitalization to target his psychotic symptoms and stabilize his mood. (1) Depression Current Visit: Yes Status: Acute Priority: High Code(s): F32.9 - MAJOR DEPRESSIVE DISORDER, SINGLE EPISODE, UNSPECIFIED SNOMED Code(s): 78462216 (2) Drug abuse and dependence Current Visit: Yes Status: Acute Priority: High Code(s): F19.20 - OTHER PSYCHOACTIVE SUBSTANCE DEPENDENCE, UNCOMPLICATED SNOMED Code(s): 0084715 (3) Suicidal ideation Current Visit: Yes Status: Acute Priority: Medium Code(s): R45.851 - SUICIDAL IDEATIONS SNOMED Code(s): 2888772 (4) Acute anxiety Current Visit: No Status: Acute Code(s): F41.9 - ANXIETY DISORDER, UNSPECIFIED SNOMED Code(s): 33423757 (5) Acute psychosis Current Visit: No Status: Acute Priority: High Code(s): F23 - BRIEF PSYCHOTIC DISORDER SNOMED Code(s): 24206560 (6) Noncompliance with medication regimen Current Visit: No Status: Acute Priority: High Code(s): Z91.14 - PATIENT' S OTHER NONCOMPLIANCE WITH MEDICATION REGIMEN SNOMED Code(s): 307774282 (7) Other stimulant use, 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 Current Visit: No Status: Acute Priority: Medium Code(s): F15.951 - OTH STIM USE, UNSP W STIM-INDUCE PSYCH DISORDER W HALLUCIN SNOMED Code(s): 081947673 Plan: Admitting Diagnosis: [Substance-induced mood disorder with psychosis] Patient Strengths - Housing stability: [x] Able to vocalize needs: [x] Resources - social, interpersonal, monetary: [] Patient Limitations: [ non-compliance, pathological/unsupported environment, no interests, intellectual impairment Initial Plan of Care: [Alex will be admitted to the psychiatric unit on a voluntary basis for her to treat his depression anxiety and substance abuse detox since he stated he had been partying for the past 7 days on multiple medications. He'll be evaluated psychiatrically, medicine, social work, social work, recreational therapy and integrated [facility] milieu therapeutic environment whereby he will go to groups. He does not go to groups she will be discharged his last appointment at [facility] was 01/03/2018 and has not made any appointments since that.] Estimated Length of Stay: [4 days] Initial Discharge Plan: [home, [facility], referred to therapist, ] Prognosis: [guarded] Justification for Inpatient Hospitalization - [Hallucinations, delusions, agitation, anxiety, depression resulting in significant loss of functioning.] [Dangerous to self, others, or property with need for controlled environment.] [Emotional or behavioral conditions and complications requiring 24 hour medical and nursing care.] [Need for special drug therapy, or other therapeutic program requiring continuous hospitalization.] [Failure of social or occupational functioning.] [Inability to meet basic life and health needs.] [Patient's occupation presents danger to public safety if they continue to use drugs or alcohol.] [Biomedical conditions and complications requiring 24 hour medical and nursing care.] [Recovery environment includes detrimental family structure, logical impediments to out-patient treatment.] [High relapse potential due to inability to control substance use.] [Plan will be to put him back on his Prozac 20 mg by mouth every morning and Invega 3 mg at bedtime. He had vague will be titrated to 6, 9 mg, and injected with Invega Sustenna. Since his been his a poor adherence to a medical treatment plan will make sure that he has Invega Sustenna on board so his adherence will increase. Time with Patient: Less than 30
[2018-05-23] MEDS ORDERED: PALIPERIDONE 3 MG TAB.ER.24 PO SCH (21:00)
[2018-05-24] MEDS: NICOTINE 14MG/24HR PATCH TRANSDERM SCH (08:21)
[2018-05-24] MEDS: buPROPion SR 150 MG TABLET.ER PO SCH (08:21)
--- NOTE | 2018-05-24 11:21 | P.PN ---
Subjective Progress Note Date: 05/24/18 Principal diagnosis: Polysubstance induced depression and psychosis Today he admits to feeling tired and fatigued depressed anxious overwhelmed suicidal with auditory hallucinations. He very rarely comes out of his room and isolates in his room. Objective - Vital Signs Vital signs: Vital Signs Temp 97.8 F 05/23/18 06:34 Pulse 69 05/23/18 06:34 Resp 14 05/23/18 06:34 BP 120/70 05/23/18 06:34 Pulse Ox 99 05/23/18 06:34 - Labs CBC & Chem 7: 05/23/18 09:46 05/23/18 09:46 Assessment and Plan Assessment: Past Psychiatric History: This will be the patient's fifth admission he was admitted last year in May 2017 and had 3 admissions in 2015. Patient has been on Seroquel Abilify Wellbutrin and Zyprexa. Patient has a history of 2 prior suicide attempts by cutting his wrists. Past Medical/Surgical History: Patient reports back pain as his only health complaint and no surgeries Family History: Patient denies a family history of any psychiatric disorders no alcohol or substance abuse disorders andcompleted suicides Social History: Patient was born and raised to parents who never and he has 2 sisters. He completed high school and attended 1 semester at college but started using drugs, cocaine and dropped out of school. 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 He states since that time he has been unable to hold a job. He was working at [employer] but lost his job when he was discharged due to his use of drugs. Patient states that since he was released from [facility] he's been living with friends and has no source of financial support. The patient has never been and has no children. Patient denies any abuse history. Substance Use History: Patient states that he does not use alcohol. He states that he began using cocaine at the age of 17 but does not currently use. He began using methamphetamine at the age of 27 and uses daily on a daily basis and has been using it daily for the last several weeks. Patient states that he is used opiate medication purchased on the street in the past. Patient states that he also abused amphetamines purchased on the street since the age of 22. Patient states he is also abused benzodiazepines, Xanax purchased on the street and last used on one occasion recently. Patient also reports one use of methadone recently. He denies any IV drug use hallucinogenic drug use. Patient reports no tobacco products use Legal History: Patient was charged with retail fraud and was released in November from [facility] after serving 5-1/2 months. After that he went to [facility] and was just recently released. He is not currently on probation Mental status: Appearance/Attitude: Patient is dressed in a hospital gown, makes good eye contact and was cooperative Behavior: Patient does not exhibit any psychomotor agitation or retardation. Speech/Language: Patient's speech is slightly slowed and his speech is spontaneous of normal rhythm and he is coherent Thought Process: Patient is goal-directed and there is no evidence of loose association or flight of ideas Thought Content: Patient reports auditory hallucinations that are telling him to hurt himself and making derogatory comments, he denies any visual hallucinations. Patient reports that he is suspicious and paranoid that people are out to get him and hurt him. He also reports that he has panic attacks where he has difficulty breathing and states this occurs on a daily basis. Patient reports that he has not been sleeping and feeling tired and exhausted and his appetite has been decreased. Suicidal/Homicidal Ideation: Patient reports that he currently is still feeling suicidal and had a plan to cut his wrist and denies any current homicidal ideation Sensorium/Cognition: Patient is alert and oriented to person, place, and time and his recent and remote memory are grossly intact. Mood/Affect: patient's mood is depressed and his affect is blunted Insight/Judgment: patient's insight and judgment are fair Intellectual Functioning: patient's intellectual functioning appears average Strength/Weakness: patient continues to use drugs, lack of financial support does have housing Assessment: patient has a history of using methamphetamine and states that he began to have his symptoms of depression, auditory hallucinations and paranoia after he began using methamphetamine at the age of 27. Patient states that he was in [facility] and once released began using drugs specifically methamphetamine and marijuana again. Patient states he also missed his last appointment at [facility] and ran out of his medications which had been effective when he was taking them. Patient now presents with symptoms of auditory hallucinations, paranoia and depression with the decrease in his energy appetite and sleep. He states he's feeling hopeless and helpless and reported suicidal ideation with a plan to cut his wrists. Patient has a history of attempting suicide twice in the past. (1) Depression Current Visit: Yes Status: Acute Priority: High Code(s): F32.9 - MAJOR DEPRESSIVE DISORDER, SINGLE EPISODE, UNSPECIFIED SNOMED Code(s): 32553603 (2) Drug abuse and dependence Current Visit: Yes Status: Acute Priority: High Code(s): F19.20 - OTHER PSYCHOACTIVE SUBSTANCE DEPENDENCE, UNCOMPLICATED SNOMED Code(s): 0922602 (3) Suicidal ideation Current Visit: Yes Status: Acute Priority: Medium Code(s): R45.851 - SUICIDAL IDEATIONS SNOMED Code(s): 7833761 (4) Acute anxiety Current Visit: No Status: Acute Code(s): F41.9 - ANXIETY DISORDER, UNSPECIFIED SNOMED Code(s): 17785670 (5) Acute psychosis Narrative/Plan: Admission Diagnosis: 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 Patient also had routine laboratory studies as well as a medical consultation. Patient and I discussed his response to both the Wellbutrin and Zyprexa in the past and he stated that it was good. Patient will be restarted on Wellbutrin 150 mg sustained release in the morning and Invega 6 mg mg at bedtime to target both his depressive and psychotic symptoms. I reviewed the use and side effects of the medications with the patient. I Patient and I also discussed a referral for inpatient substance use treatment and he was agreeable with this. Patient requires hospitalization to target his psychotic symptoms and stabilize his mood. Current Visit: No Status: Acute Priority: High Code(s): F23 - BRIEF PSYCHOTIC DISORDER SNOMED Code(s): 27080526 (6) Noncompliance with medication regimen Current Visit: No Status: Acute Priority: High Code(s): Z91.14 - PATIENT' S OTHER NONCOMPLIANCE WITH MEDICATION REGIMEN SNOMED Code(s): 971389994 (7) Other stimulant use, 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 Current Visit: No Status: Acute Priority: Medium Code(s): F15.951 - OTH STIM USE, UNSP W STIM-INDUCE PSYCH DISORDER W HALLUCIN SNOMED Code(s): 481619432 Plan: Admitting Diagnosis: [Substance-induced mood disorder with psychosis] Patient Strengths - Housing stability: [x] Able to vocalize needs: [x] Resources - social, interpersonal, monetary: [] Patient Limitations: [ non-compliance, pathological/unsupported environment, no interests, intellectual impairment Initial Plan of Care: [Alex will be admitted to the psychiatric unit on a voluntary basis for her to treat his depression anxiety and substance abuse detox since he stated he had been partying for the past 7 days on multiple medications. He'll be evaluated psychiatrically, medicine, social work, social work, recreational therapy and integrated [place] therapeutic environment whereby he will go to groups. He does not go to groups she will be discharged his last appointment at [facility] was 01/03/2018 and has not made any appointments since that.] Estimated Length of Stay: [4 days] Initial Discharge Plan: [home, [facility], referred to therapist, ] Prognosis: [guarded] Justification for Inpatient Hospitalization - [Hallucinations, delusions, agitation, anxiety, depression resulting in significant loss of functioning.] [Dangerous to self, others, or property with need for controlled environment.] [Emotional or behavioral conditions and complications requiring 24 hour medical and nursing care.] [Need for special drug therapy, or other therapeutic program requiring continuous hospitalization.] [Failure of social or occupational functioning.] [Inability to meet basic life and health needs.] [Patient's occupation presents danger to public safety if they continue to use drugs or alcohol.] [Biomedical conditions and complications requiring 24 hour medical and nursing care.] [Recovery environment includes detrimental family structure, logical impediments to out-patient treatment.] [High relapse potential due to inability to control substance use.] [Plan will be to put him back on his Prozac 30 mg by mouth every morning and Invega 6 mg at bedtime. He had vague will be titrated to 6, 9 mg, and injected with Invega Sustenna. Since his been his a poor adherence to a medical treatment plan will make sure that he has Invega Sustenna on board so his adherence will increase. Time with Patient: Less than 30
[2018-05-24] MEDS: PALIPERIDONE 6 MG TAB.ER.24 PO SCH (20:17)
[2018-05-25] MEDS: NICOTINE 14MG/24HR PATCH TRANSDERM SCH ×2 (09:28→09:39)
[2018-05-25] MEDS: buPROPion SR 150 MG TABLET.ER PO SCH (09:28)
--- NOTE | 2018-05-25 11:45 | P.PN ---
Progress Note - Text Interval history: The patient is found in his room he does not wish to follow me to an interview room to speak. The patient is known to the psychiatric service as he has had several admissions. He presents again with symptoms of psychosis in the context of using illicit drugs specifically methamphetamine and cocaine. The patient is sleeping he is verbally arousable. He minimally participates in the interview. When asked why he is here he states "the same reason I'm always here". When asking about symptoms of psychosis he endorses thoughts of being in alternate dimensions an alternate realities. He nonchalantly states he's having command auditory hallucinations directing self- harm. Mental status exam: The patient's is lying in bed he was sleeping he was verbally arousable he remained alert for the duration of our interaction. He made no eye contact and he kept his eyes closed. He is dressed in hospital attire. He puts little effort into our conversation. He endorses psychosis as noted above. Insight and judgment limited. He is demonstrating no verbal or physical aggressiveness. He maintains a blunted affect. Plan: The patient is currently on an invega for his symptoms of psychosis. He typically does not participate in the milieu although he is encouraged. Vital signs reviewed. We will monitor him for safety.
[2018-05-25] MEDS: PALIPERIDONE 6 MG TAB.ER.24 PO SCH (20:22)
[2018-05-25] MEDS: LORazepam 1 MG TAB PO PRN (22:03)
[2018-05-26] MEDS: buPROPion SR 150 MG TABLET.ER PO SCH (09:18)
[2018-05-26] MEDS: NICOTINE 14MG/24HR PATCH TRANSDERM SCH (09:21)
--- NOTE | 2018-05-26 11:20 | P.PN ---
Progress Note - Text interval history: The patient is found in his room he does not wish to speak with me in an interview room. he indicates he has not been attending groups. he continues to isolate in his room other than meals. he has been compliant with medication. He has no questions regarding his psychotropic medication. he indicates he no longer is experiencing any symptoms of psychosis he denies having any auditory or visual hallucinations he denies having any specific delusions. he states that he has suicidal ideation today with the thought of hanging himself. Mental status exam: the patient is lying in bed he keeps his eyes closed but provides verbal responses to questions asked. he reports no auditory or visual hallucinations and no specific delusions. He states though symptoms he reported yesterday have completely resolved. he is reporting no homicidal ideation but states he has suicidal ideation today with thoughts of hanging himself. he demonstrates no verbal or physical aggressiveness he demonstrates no observed abnormal repetitive movements. insight and judgment limited. he demonstrates no observed evidence of psychosis. he does not appear hypomanic or manic. affect is constricted. Plan: the patient will continue on his current psychotropic medications he is encouraged to participate in the milieu although he frequently does not. we will monitor him for safety. vital signs reviewed.
[2018-05-26] MEDS: PALIPERIDONE 6 MG TAB.ER.24 PO SCH (20:36)
[2018-05-26] MEDS: LORazepam 1 MG TAB PO PRN (22:45)
[2018-05-27] MEDS: buPROPion SR 150 MG TABLET.ER PO SCH (09:34)
[2018-05-27] MEDS: NICOTINE 14MG/24HR PATCH TRANSDERM SCH (09:34)
--- NOTE | 2018-05-27 11:42 | P.PN ---
Subjective Progress Note Date: 05/27/18 Principal diagnosis: Polysubstance induced depression and psychosis Today he admits to feeling tired and fatigued depressed anxious overwhelmed less suicidal without auditory hallucinations. He very rarely comes out of his room and isolates in his room. Objective - Vital Signs Vital signs: Vital Signs Temp 98.4 F 05/27/18 06:45 Pulse 91 05/27/18 06:45 Resp 12 05/27/18 06:45 BP 101/59 05/27/18 06:45 Pulse Ox 99 05/23/18 06:34 Intake & Output 05/26/18 05/27/18 05/27/18 18:59 06:59 18:59 Weight 83.917 kg - Labs CBC & Chem 7: 05/23/18 09:46 05/23/18 09:46 Assessment and Plan Assessment: Past Psychiatric History: This will be the patient's fifth admission he was admitted last year in May 2017 and had 3 admissions in 2015. Patient has been on Seroquel Abilify Wellbutrin and Zyprexa. Patient has a history of 2 prior suicide attempts by cutting his wrists. Past Medical/Surgical History: Patient reports back pain as his only health complaint and no surgeries Family History: Patient denies a family history of any psychiatric disorders no alcohol or substance abuse disorders andcompleted suicides Social History: Patient was born and raised to parents who never and he has 2 sisters. He completed high school and attended 1 semester at college but started using drugs, cocaine and dropped out of school. 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 He states since that time he has been unable to hold a job. He was working at [employer] but lost his job when he was discharged due to his use of drugs. Patient states that since he was released from [employer] he's been living with friends and has no source of financial support. The patient has never been and has no children. Patient denies any abuse history. Substance Use History: Patient states that he does not use alcohol. He states that he began using cocaine at the age of 17 but does not currently use. He began using methamphetamine at the age of 27 and uses daily on a daily basis and has been using it daily for the last several weeks. Patient states that he is used opiate medication purchased on the street in the past. Patient states that he also abused amphetamines purchased on the street since the age of 22. Patient states he is also abused benzodiazepines, Xanax purchased on the street and last used on one occasion recently. Patient also reports one use of methadone recently. He denies any IV drug use hallucinogenic drug use. Patient reports no tobacco products use Legal History: Patient was charged with retail fraud and was released in November from [facility] after serving 5-1/2 months. After that he went to [facility] and was just recently released. He is not currently on probation Mental status: Appearance/Attitude: Patient is dressed in a hospital gown, makes good eye contact and was cooperative Behavior: Patient does not exhibit any psychomotor agitation or retardation. Speech/Language: Patient's speech is slightly slowed and his speech is spontaneous of normal rhythm and he is coherent Thought Process: Patient is goal-directed and there is no evidence of loose association or flight of ideas Thought Content: Patient reports auditory hallucinations that are telling him to hurt himself and making derogatory comments, he denies any visual hallucinations. Patient reports that he is suspicious and paranoid that people are out to get him and hurt him. He also reports that he has panic attacks where he has difficulty breathing and states this occurs on a daily basis. Patient reports that he has not been sleeping and feeling tired and exhausted and his appetite has been decreased. Suicidal/Homicidal Ideation: Patient reports that he currently is still feeling suicidal and had a plan to cut his wrist and denies any current homicidal ideation Sensorium/Cognition: Patient is alert and oriented to person, place, and time and his recent and remote memory are grossly intact. Mood/Affect: patient's mood is depressed and his affect is blunted Insight/Judgment: patient's insight and judgment are fair Intellectual Functioning: patient's intellectual functioning appears average Strength/Weakness: patient continues to use drugs, lack of financial support does have housing Assessment: patient has a history of using methamphetamine and states that he began to have his symptoms of depression, auditory hallucinations and paranoia after he began using methamphetamine at the age of 27. Patient states that he was in [facility] and once released began using drugs specifically methamphetamine and marijuana again. Patient states he also missed his last appointment at [facility] and ran out of his medications which had been effective when he was taking them. Patient now presents with symptoms of auditory hallucinations, paranoia and depression with the decrease in his energy appetite and sleep. He states he's feeling hopeless and helpless and reported suicidal ideation with a plan to cut his wrists. Patient has a history of attempting suicide twice in the past. (1) Depression Current Visit: Yes Status: Acute Priority: High Code(s): F32.9 - MAJOR DEPRESSIVE DISORDER, SINGLE EPISODE, UNSPECIFIED SNOMED Code(s): 60557158 (2) Drug abuse and dependence Current Visit: Yes Status: Acute Priority: High Code(s): F19.20 - OTHER PSYCHOACTIVE SUBSTANCE DEPENDENCE, UNCOMPLICATED SNOMED Code(s): 6415155 (3) Suicidal ideation Current Visit: Yes Status: Acute Priority: Medium Code(s): R45.851 - SUICIDAL IDEATIONS SNOMED Code(s): 9270632 (4) Acute anxiety Current Visit: No Status: Acute Code(s): F41.9 - ANXIETY DISORDER, UNSPECIFIED SNOMED Code(s): 99896073 (5) Acute psychosis Current Visit: No Status: Acute Priority: High Code(s): F23 - BRIEF PSYCHOTIC DISORDER SNOMED Code(s): 86945273 (6) Noncompliance with medication regimen Current Visit: No Status: Acute Priority: High Code(s): Z91.14 - PATIENT' S OTHER NONCOMPLIANCE WITH MEDICATION REGIMEN SNOMED Code(s): 274457507 (7) Other stimulant use, 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 Current Visit: No Status: Acute Priority: Medium Code(s): F15.951 - OTH STIM USE, UNSP W STIM-INDUCE PSYCH DISORDER W HALLUCIN SNOMED Code(s): 697307596 Plan: Admitting Diagnosis: [Substance-induced mood disorder with psychosis] Patient Strengths - Housing stability: [x] Able to vocalize needs: [x] Resources - social, interpersonal, monetary: [] Patient Limitations: [ non-compliance, pathological/unsupported environment, no interests, intellectual impairment Initial Plan of Care: [Alex will be admitted to the psychiatric unit on a voluntary basis for her to treat his depression anxiety and substance abuse detox since he stated he had been partying for the past 7 days on multiple medications. He'll be evaluated psychiatrically, medicine, social work, social work, recreational therapy and integrated [facility] therapeutic environment whereby he will go to groups. He does not go to groups she will be discharged his last appointment at [facility] was 01/03/2018 and has not made any appointments since that.] Estimated Length of Stay: [4 days] Initial Discharge Plan: [home, [facility], referred to therapist, ] Prognosis: [guarded] Justification for Inpatient Hospitalization - [Hallucinations, delusions, agitation, anxiety, depression resulting in significant loss of functioning.] [Dangerous to self, others, or property with need for controlled environment.] [Emotional or behavioral conditions and complications requiring 24 hour medical and nursing care.] [Need for special drug therapy, or other therapeutic program requiring continuous hospitalization.] [Failure of social or occupational functioning.] [Inability to meet basic life and health needs.] [Patient's occupation presents danger to public safety if they continue to use drugs or alcohol.] [Biomedical conditions and complications requiring 24 hour medical and nursing care.] [Recovery environment includes detrimental family structure, logical impediments to out-patient treatment.] [High relapse potential due to inability to control substance use.]Wellbutrin 200 mg SR po qam [Plan will be to put him back on his Prozac 30 mg by mouth every morning and Invega 6 mg at bedtime. He had vague will be titrated to 9 mg, and injected with Invega Sustenna. Since his been his a poor adherence to a medical treatment plan will make sure that he has Invega Sustenna on board so his adherence will increase.
[2018-05-27] MEDS: NALTREXONE HCL 50 MG TAB PO SCH (20:00)
[2018-05-27] MEDS: PALIPERIDONE 3 MG TAB.ER.24 PO SCH (20:00)
[2018-05-28] MEDS: buPROPion SR 100 MG TABLET.ER PO SCH (08:50)
[2018-05-28] MEDS: NICOTINE 14MG/24HR PATCH TRANSDERM SCH (08:51)
--- NOTE | 2018-05-28 10:28 | P.PN ---
Subjective Progress Note Date: 05/28/18 Principal diagnosis: Polysubstance induced depression and psychosis Today he admits to feeling tired and fatigued depressed anxious overwhelmed less suicidal without auditory hallucinations. He very rarely comes out of his room and isolates in his room. Objective - Vital Signs Vital signs: Vital Signs Temp 98 F 05/28/18 06:36 Pulse 85 05/28/18 06:36 Resp 18 05/28/18 06:36 BP 115/56 05/28/18 06:36 Pulse Ox 99 05/23/18 06:34 - Labs CBC & Chem 7: 05/23/18 09:46 05/23/18 09:46 Assessment and Plan Assessment: Past Psychiatric History: This will be the patient's fifth admission he was admitted last year in May 2017 and had 3 admissions in 2015. Patient has been on Seroquel Abilify Wellbutrin and Zyprexa. Patient has a history of 2 prior suicide attempts by cutting his wrists. Past Medical/Surgical History: Patient reports back pain as his only health complaint and no surgeries Family History: Patient denies a family history of any psychiatric disorders no alcohol or substance abuse disorders andcompleted suicides Social History: Patient was born and raised to parents who never and he has 2 sisters. He completed high school and attended 1 semester at college but started using drugs, cocaine and dropped out of school. 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 He states since that time he has been unable to hold a job. He was working at [employer] but lost his job when he was discharged due to his use of drugs. Patient states that since he was released from [facility] he's been living with friends and has no source of financial support. The patient has never been and has no children. Patient denies any abuse history. Substance Use History: Patient states that he does not use alcohol. He states that he began using cocaine at the age of 17 but does not currently use. He began using methamphetamine at the age of 27 and uses daily on a daily basis and has been using it daily for the last several weeks. Patient states that he is used opiate medication purchased on the street in the past. Patient states that he also abused amphetamines purchased on the street since the age of 22. Patient states he is also abused benzodiazepines, Xanax purchased on the street and last used on one occasion recently. Patient also reports one use of methadone recently. He denies any IV drug use hallucinogenic drug use. Patient reports no tobacco products use Legal History: Patient was charged with retail fraud and was [facility] in [facility] after serving 5-1/2 months. After that he went to [facility] and was just recently released. He is not currently on probation Mental status: Appearance/Attitude: Patient is dressed in a hospital gown, makes good eye contact and was cooperative Behavior: Patient does not exhibit any psychomotor agitation or retardation. Speech/Language: Patient's speech is slightly slowed and his speech is spontaneous of normal rhythm and he is coherent Thought Process: Patient is goal-directed and there is no evidence of loose association or flight of ideas Thought Content: Patient reports auditory hallucinations that are telling him to hurt himself and making derogatory comments, he denies any visual hallucinations. Patient reports that he is suspicious and paranoid that people are out to get him and hurt him. He also reports that he has panic attacks where he has difficulty breathing and states this occurs on a daily basis. Patient reports that he has not been sleeping and feeling tired and exhausted and his appetite has been decreased. Suicidal/Homicidal Ideation: Patient reports that he currently is still feeling suicidal and had a plan to cut his wrist and denies any current homicidal ideation Sensorium/Cognition: Patient is alert and oriented to person, place, and time and his recent and remote memory are grossly intact. Mood/Affect: patient's mood is depressed and his affect is blunted Insight/Judgment: patient's insight and judgment are fair Intellectual Functioning: patient's intellectual functioning appears average Strength/Weakness: patient continues to use drugs, lack of financial support does have housing Assessment: patient has a history of using methamphetamine and states that he began to have his symptoms of depression, auditory hallucinations and paranoia after he began using methamphetamine at the age of 27. Patient states that he was in [facility] and once released began using drugs specifically methamphetamine and marijuana again. Patient states he also missed his last appointment at [facility] and ran out of his medications which had been effective when he was taking them. Patient now presents with symptoms of auditory hallucinations, paranoia and depression with the decrease in his energy appetite and sleep. He states he's feeling hopeless and helpless and reported suicidal ideation with a plan to cut his wrists. Patient has a history of attempting suicide twice in the past. (1) Depression Current Visit: Yes Status: Acute Priority: Medium Code(s): F32.9 - MAJOR DEPRESSIVE DISORDER, SINGLE EPISODE, UNSPECIFIED SNOMED Code(s): 80665250 (2) Drug abuse and dependence Current Visit: Yes Status: Acute Priority: High Code(s): F19.20 - OTHER PSYCHOACTIVE SUBSTANCE DEPENDENCE, UNCOMPLICATED SNOMED Code(s): 3038028 (3) Suicidal ideation Current Visit: Yes Status: Acute Priority: Medium Code(s): R45.851 - SUICIDAL IDEATIONS SNOMED Code(s): 8835781 (4) Acute anxiety Current Visit: No Status: Acute Code(s): F41.9 - ANXIETY DISORDER, UNSPECIFIED SNOMED Code(s): 19820564 (5) Acute psychosis Current Visit: No Status: Acute Priority: High Code(s): F23 - BRIEF PSYCHOTIC DISORDER SNOMED Code(s): 92110841 (6) Noncompliance with medication regimen Current Visit: No Status: Acute Priority: High Code(s): Z91.14 - PATIENT' S OTHER NONCOMPLIANCE WITH MEDICATION REGIMEN SNOMED Code(s): 843921600 (7) Other stimulant use, 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 Current Visit: No Status: Acute Priority: Medium Code(s): F15.951 - OTH STIM USE, UNSP W STIM-INDUCE PSYCH DISORDER W HALLUCIN SNOMED Code(s): 830756426 Plan: Admitting Diagnosis: [Substance-induced mood disorder with psychosis] Patient Strengths - Housing stability: [x] Able to vocalize needs: [x] Resources - social, interpersonal, monetary: [] Patient Limitations: [ non-compliance, pathological/unsupported environment, no interests, intellectual impairment Initial Plan of Care: [Alex will be admitted to the psychiatric unit on a voluntary basis for her to treat his depression anxiety and substance abuse detox since he stated he had been partying for the past 7 days on multiple medications. He'll be evaluated psychiatrically, medicine, social work, social work, recreational therapy and integrated [facility] therapeutic environment whereby he will go to groups. He does not go to groups she will be discharged his last appointment at [facility] was 01/03/2018 and has not made any appointments since that.] Estimated Length of Stay: [4 days] Initial Discharge Plan: [home, [facility], referred to therapist, ] Prognosis: [guarded] Justification for Inpatient Hospitalization - [Hallucinations, delusions, agitation, anxiety, depression resulting in significant loss of functioning.] [Dangerous to self, others, or property with need for controlled environment.] [Emotional or behavioral conditions and complications requiring 24 hour medical and nursing care.] [Need for special drug therapy, or other therapeutic program requiring continuous hospitalization.] [Failure of social or occupational functioning.] [Inability to meet basic life and health needs.] [Patient's occupation presents danger to public safety if they continue to use drugs or alcohol.] [Biomedical conditions and complications requiring 24 hour medical and nursing care.] [Recovery environment includes detrimental family structure, logical impediments to out-patient treatment.] [High relapse potential due to inability to control substance use.]Wellbutrin 200 mg SR po qam [Plan will be to put him back on his Prozac 30 mg by mouth every morning and Invega 6 mg at bedtime. He had vague will be titrated to 9 mg, and injected with Invega Sustenna. Since his been his a poor adherence to a medical treatment plan will make sure that he has Invega Sustenna on board so his adherence will increase. Time with Patient: Less than 30
[2018-05-28] MEDS: NALTREXONE HCL 50 MG TAB PO SCH (21:48)
[2018-05-28] MEDS: PALIPERIDONE 3 MG TAB.ER.24 PO SCH (21:48)
[2018-05-29 06:26] VITALS: BP 100/52; PULSE 80; RESP 16; TEMP 97.8
[2018-05-29] MEDS: buPROPion SR 100 MG TABLET.ER PO SCH (08:10)
[2018-05-29] MEDS: NICOTINE 14MG/24HR PATCH TRANSDERM SCH (08:10)
--- NOTE | 2018-05-29 13:22 | P.DS ---
Providers Date of admission: 05/22/18 17:24 Expected date of discharge: 05/29/18 Attending physician: Mckinley Melissa DO Consults: 05/22/18 18:16 Consult Physician Routine Consulting Provider: Toney Deras Consult Reason/Comments: H & P and medical care Do you want consulting provider notified?: Yes Primary care physician: Stated None - Discharge Diagnosis(es) (1) Depression History of Present Illness Initial Comments: This a 33-year-old male presents emergency Department chief complaint of depression, suicidal ideation. Patient has history of depression symptoms and have worsened recently.. Patient states he does have history of drug abuse including methamphetamines recently. Patient states he occasionally drinks alcohol denies any abuse. Denies any physical complaints. Patient is not forthcoming information at this time. Patient denies any homicidal ideation. Denies any physical complaints Past Medical History Past Medical History: No Reported History Additional Past Medical History / Comment(s): chronic back pain, migraine, seasonal ALLERGIES, kidney stones History of Any Multi-Drug Resistant Organisms: None Reported Past Surgical History: No Surgical Hx Reported Additional Past Surgical History / Comment(s): Oral Surgery 1990s, per patient. Past Anesthesia/Blood Transfusion Reactions: No Reported Reaction Past Psychological History: ADD/ADHD, Anxiety, Depression Smoking Status: Never smoker Past Alcohol Use History: None Reported Past Drug Use History: Heroin, Marijuana, Methamphetamine, Opiates, Prescription Drug Abuse Past Psychiatric History: This will be the patient's fifth admission he was admitted last year in May 2017 and had 3 admissions in 2016. Patient has been on Seroquel Abilify Wellbutrin and Zyprexa. Patient has a history of 2 prior suicide attempts by cutting his wrists. Social History: Patient was born and raised to parents who never and he has 2 sisters. He completed high school and attended 1 semester at college but started using drugs, cocaine and dropped out of school. 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 He states since that time he has been unable to hold a job. He was working at [employer] but lost his job when he was discharged due to his use of drugs. Patient states that since he was released from [employer] he's been living with friends and has no source of financial support. The patient has never been and has no children. Patient denies any abuse history. Substance Use History: Patient states that he does not use alcohol. He states that he began using cocaine at the age of 17 but does not currently use. He began using methamphetamine at the age of 27 and uses daily on a daily basis and has been using it daily for the last several weeks. Patient states that he is used opiate medication purchased on the street in the past. Patient states that he also abused amphetamines purchased on the street since the age of 22. Patient states he is also abused benzodiazepines, Xanax purchased on the street and last used on one occasion recently. Patient also reports one use of methadone recently. He denies any IV drug use hallucinogenic drug use. Patient reports no tobacco products use Legal History: Patient was charged with retail fraud and [facility] after serving 5-1/2 months. After that he went to [facility] and was just recently released. He is not currently on probation Mental status: Appearance/Attitude: Patient is dressed in a hospital gown, makes good eye contact and was cooperative Behavior: Patient does not exhibit any psychomotor agitation or retardation. Speech/Language: Patient's speech is slightly slowed and his speech is spontaneous of normal rhythm and he is coherent Thought Process: Patient is goal-directed and there is no evidence of loose association or flight of ideas Thought Content: Patient reports auditory hallucinations that are telling him to hurt himself and making derogatory comments, he denies any visual hallucinations. Patient reports that he is suspicious and paranoid that people are out to get him and hurt him. He also reports that he has panic attacks where he has difficulty breathing and states this occurs on a daily basis. Patient reports that he has not been sleeping and feeling tired and exhausted and his appetite has been decreased. Suicidal/Homicidal Ideation: Patient reports that he is not currently is still feeling suicidal and has no plan to cut his wrist and denies any current homicidal ideation Sensorium/Cognition: Patient is alert and oriented to person, place, and time and his recent and remote memory are grossly intact. Mood/Affect: patient's euthymic and his affect is blunted Insight/Judgment: patient's insight and judgment are fair Intellectual Functioning: patient's intellectual functioning appears average Strength/Weakness: does have housing and lacks insight about use of street drugs Current Visit: Yes Status: Acute Priority: Low (2) Drug abuse and dependence Current Visit: Yes Status: Acute Priority: High (3) Suicidal ideation Current Visit: No Status: Acute Priority: Low (4) Acute anxiety Current Visit: No Status: Acute Priority: Low (5) Acute psychosis Current Visit: No Status: Acute Priority: Low (6) Noncompliance with medication regimen Current Visit: No Status: Acute Priority: High (7) Other stimulant use, 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 Patient had routine laboratory studies as well as a medical consultation. Patient was restarted on his prior medications as he voiced that they have been beneficial to him in the past. Patient states that he been using methamphetamine to make himself feel on top of the world. When the doses were reached as stated above the patient voiced no longer hearing voices, longer feeling paranoid and depressed as well as no longer having suicidal thoughts. Patient did not attend groups or activities while he was on the inpatient unit spending most of his time in bed. Patient had no appetite or sleep disturbance. Patient was encouraged to avoid all alcohol and drugs when he left the unit and he felt that he was ready for discharge and stated that he was going to contact his mother to see if he could return to live with her. Patient reported no side effects from the medication. He does not participate in treatment therefore he has detoxed and is ready to to be discharged since he is not adherent to psychiatric recommendations. Patient Condition at Discharge: Stable Plan - Discharge Summary Discharge Rx Participant: No New Discharge Prescriptions: Continue buPROPion XL [Wellbutrin XL] 300 mg PO DAILY #14 tab.er.24h OLANZapine [ZyPREXA] 15 mg PO HS #28 tablet Discharge Medication List OLANZapine [ZyPREXA] 15 mg PO HS #28 tablet 05/29/18 [Rx] buPROPion XL [Wellbutrin XL] 300 mg PO DAILY #14 tab.er.24h 05/29/18 [Rx] Follow up Appointment(s)/Referral(s): [facility] [Outside] - 1-2 Days (walk in intake today until 3pm tomorrow 830 [phone] Sunday 830 - 300 ) None,Stated [Primary Care Provider] - 1-2 days Patient Instructions/Handouts: Depression (DC), Help Prevent Suicide (DC), Suicide Prevention (DC) Activity/Diet/Wound Care/Special Instructions: activity and diet as tolerated. no guns or weapons in the home. no drugs or alcohol or street drugs, not ordered by doctor. attend all follow up appointments as scheduled. take all medications as prescribed. Return to the if symptoms worsen. Discharge Disposition: HOME SELF-CARE
== END 2018-05-29 13:51 | disposition home or self-care (01) | DRG 897 ==
LOC: EC 14:20 → 3MHU 17:24
PROVIDERS: ADMIT Psychiatry & Neurology Psychiatry; ATTEND Psychiatry & Neurology Psychiatry
DX: F15.151 Other stimulant abuse with stimulant-induced psychotic disorder with hallucinations (principal); R45.851 Suicidal ideations; F11.10 Opioid abuse, uncomplicated; F12.10 Cannabis abuse, uncomplicated; F41.0 Panic disorder [episodic paroxysmal anxiety]; F41.8 Other specified anxiety disorders; F90.9 Attention-deficit hyperactivity disorder, unspecified type; Z87.442 Personal history of urinary calculi; Z91.14 Patient's other noncompliance with medication regimen; Z91.19 Patient's noncompliance with other medical treatment and regimen; Z91.5 Personal history of self-harm; F17.210 Nicotine dependence, cigarettes, uncomplicated; M54.9 Dorsalgia, unspecified; G89.29 Other chronic pain; G43.909 Migraine, unspecified, not intractable, without status migrainosus; Z56.0 Unemployment, unspecified; Z65.3 Problems related to other legal circumstances; Z79.899 Other long term (current) drug therapy
CPT/HCPCS: 80053; 80061; 80306; 82075; 82248; 83036; 84443; 85025; 99285

== ENCOUNTER 2019-02-26 14:02 | Emergency (ER) | payer MEDICAID, OTHER ==
[2019-02-26 14:13] VITALS: PULSE 89; RESP 18; TEMP 98
[2019-02-26] MEDS ORDERED: LORazepam 1 MG TAB PO STA (14:32)
[2019-02-26 14:34] VITALS: BP 146/95
--- NOTE | 2019-02-26 14:39 | ED ---
General Adult HPI - General Chief complaint: Anxiety Stated complaint: Anxiety Time Seen by Provider: 02/26/19 14:20 Source: patient, RN notes reviewed Mode of arrival: ambulatory Limitations: no limitations - History of Present Illness Initial comments: Alex is a 33-year-old male with a past medical history of chronic back pain, migraines, kidney stones, depression, ADD, anxiety who presents to the emergency department for anxiety. Patient states he is supposed to be on medications for depression and anxiety but has not been taking these because they make him tired. States that over the past week he has had increased anxiety and has had a couple panic attacks. States that right now he feels anxious. States he thought about calling [facility] as they are manage his medications but they came here instead. Patient is denying any suicidal thoughts whatsoever. Denies any suicidal thoughts this week despite triage note. States he is denying any worsening depression just having worsening anxiety.Patient has no other complaints at this time including shortness of breath, chest pain, abdominal pain, nausea or vomiting, headache, or visual changes. - Related Data Previous Rx's Medication Instructions Recorded OLANZapine [ZyPREXA] 15 mg PO HS #28 tablet 05/29/18 buPROPion XL [Wellbutrin XL] 300 mg PO DAILY #14 tab.er.24h 05/29/18 Allergies Allergy/AdvReac Type Severity Reaction Status Date / Time No Known Allergies Allergy Verified 02/26/19 14:13 Review of Systems ROS Statement: Those systems with pertinent positive or pertinent negative responses have been documented in the HPI. ROS Other: All systems not noted in ROS Statement are negative. Past Medical History Past Medical History: No Reported History Additional Past Medical History / Comment(s): chronic back pain, migraine, seasonal ALLERGIES, kidney stones History of Any Multi-Drug Resistant Organisms: None Reported Past Surgical History: No Surgical Hx Reported Additional Past Surgical History / Comment(s): Oral Surgery 1990s, per patient. Past Anesthesia/Blood Transfusion Reactions: No Reported Reaction Past Psychological History: ADD/ADHD, Anxiety, Depression Smoking Status: Never smoker Past Alcohol Use History: None Reported Past Drug Use History: None Reported - Past Family History Father Family Medical History: No Reported History Additional Family Medical History / Comment(s): Father is approximately 50 years of age. Patient has no contact with his father. Mother Family Medical History: No Reported History Additional Family Medical History / Comment(s): Mother is age 48 and healthy with no major medical problems. Sister(s) Family Medical History: No Reported History Additional Family Medical History / Comment(s): He has 2 sisters with no major medical problems. Patient does not have any brothers. General Exam Limitations: no limitations General appearance: alert, in no apparent distress Head exam: Present: atraumatic, normocephalic, normal inspection Eye exam: Present: normal appearance, PERRL, EOMI. Absent: scleral icterus, conjunctival injection, periorbital swelling ENT exam: Present: normal exam, mucous membranes moist Neck exam: Present: normal inspection, full ROM. Absent: tenderness, meningismus, lymphadenopathy Respiratory exam: Present: normal lung sounds bilaterally. Absent: respiratory distress, wheezes, rales, rhonchi, stridor Cardiovascular Exam: Present: regular rate, normal rhythm, normal heart sounds. Absent: systolic murmur, diastolic murmur, rubs, gallop, clicks Neurological exam: Present: alert, oriented X3, CN II-XII intact Psychiatric exam: Present: anxious Course Vital Signs 02/26/19 02/26/19 14:05 14:33 Temperature 98.0 F Pulse Rate 89 Respiratory 18 Rate Blood Pressure 146/95 O2 Sat by Pulse 98 Oximetry Medical Decision Making - Medical Decision Making Alex is a 33-year-old male with a past medical history of depression, ADD, anxiety who presents to the emergency department for anxiety. Patient states he is supposed to be on medications for depression and anxiety but has not been taking these. States that over the past week he has had increased anxiety and has a few panic attacks. He feels anxious right now. Patient did not follow up with [facility] for medication refills. Patient denying any suicidal thoughts whatsoever, denying any thoughts of harming himself. Patient was given Ativan, recommended following up with [facility] by calling today to make an appointment. Recommend he return here if he has any worsening symptoms or any suicidal thoughts. Disposition Clinical Impression: Anxiety Disposition: HOME SELF-CARE Condition: Good Instructions (If sedation given, give patient instructions): Generalized Anxiety Disorder (ED) Additional Instructions: Please follow-up with [facility] for medication refill. Please follow-up with primary care in 1-2 days. Return here to the emergency department if you have any worsening symptoms or any thoughts of suicide or harming yourself. Is patient prescribed a controlled substance at d/c from ED?: No Referrals: Reynaldo Friend MD [REFERRING] - 1-2 days Time of Disposition: 14:57
== END 2019-02-26 15:03 | disposition home or self-care (01) ==
LOC: EC 14:02
DX: F41.9 Anxiety disorder, unspecified (principal); Z91.14 Patient's other noncompliance with medication regimen
CPT/HCPCS: 99283

== ENCOUNTER 2019-04-08 16:35 | Observation (INO) | payer MEDICAID, OTHER ==
[2019-04-08] MEDS ORDERED: LORazepam 2 MG/ML INJ IM STA (16:53)
[2019-04-08] MEDS ORDERED: diphenhydrAMINE 50 MG/ML 1 ML VIAL IM STA (17:11)
[2019-04-08 18:11] LABS: Basophils % (A) 0 %; Eosinophils % (A) 0 %; HCT 45.7 % (39.0-53.0); HGB 16.2 gm/dL (13.0-17.5); Lymphocytes # (A) 1.3 k/uL (1.0-4.8); Lymphocytes % (A) 13 %; MCHC 35.5 g/dL (31.0-37.0); MCV 84.7 fL (80.0-100.0); Mean Platelet Volume 6.5; Monocytes # (A) 0.7 k/uL (0-1.0); Monocytes % (A) 7 %; Neutrophils # (A) 7.9 k/uL (1.3-7.7); Neutrophils % (A) 76 %; Platelet Count 376 k/uL (150-450); RBC 5.39 m/uL (4.30-5.90); RDW 13.4 % (11.5-15.5); WBC 10.3 k/uL (3.8-10.6)
[2019-04-08 18:30] LABS: Acetaminophen <10.0 ug/mL; African American GFR (CKD) >90 (>60 ml/min/1.73 sqM); Alcohol <10 mg/dL; Anion Gap 14 mmol/L; Blood Urea Nitrogen 18 mg/dL (9-20); Calcium 9.9 mg/dL (8.4-10.2); Carbon Dioxide 28 mmol/L (22-30); Chloride 99 mmol/L (98-107); Glucose 109 mg/dL (74-99); Potassium 3.8 mmol/L (3.5-5.1); Salicylate <1.0 mg/dL; Sodium 141 mmol/L (137-145)
--- NOTE | 2019-04-08 19:05 | ED ---
Psych HPI - General Chief Complaint: Psychiatric Symptoms Stated Complaint: EPS eval Time Seen by Provider: 04/08/19 17:20 Source: patient Mode of arrival: ambulatory - History of Present Illness Initial Comments: The patient is a 33-year-old male presents to the emergency department and originally cannot provide much history. He does present with his tongue protruding from his mouth. He keeps attempting to pull out his tongue with his hands. There is notable blood coming from his mouth. The patient appears very anxious. He is nonsensical in the waiting room. He is placed in room 12 and I do attempt to ask questions however the patient does not answer. I do review h is chart. He does have a large psychiatric history. The patient is on Seroquel, Wellbutrin, and Zyprexa. I question the patient with a he taking his medications and he says yes. I asked him if he has ever had this reaction to his medications before and he denies. He initially denies any drug use. The remainder of the HPI was limited because of the patient's current state. - Related Data Home Medications Medication Instructions Recorded Confirmed OLANZapine [ZyPREXA] 20 mg PO HS 04/08/19 04/08/19 buPROPion HCL [Wellbutrin SR] 300 mg PO DAILY 04/08/19 04/08/19 cloNIDine HCL [Catapres] 0.1 mg PO BID PRN 04/08/19 04/08/19 Previous Rx's Medication Instructions Recorded Cefuroxime Axetil [Ceftin] 500 mg PO BID 7 Days #14 tab 04/11/19 Allergies Allergy/AdvReac Type Severity Reaction Status Date / Time No Known Allergies Allergy Verified 04/08/19 18:26 Review of Systems ROS Statement: Those systems with pertinent positive or pertinent negative responses have been documented in the HPI. ROS Other: All systems not noted in ROS Statement are negative. Past Medical History Past Medical History: No Reported History Additional Past Medical History / Comment(s): chronic back pain, migraine, seasonal ALLERGIES, kidney stones History of Any Multi-Drug Resistant Organisms: None Reported Past Surgical History: No Surgical Hx Reported Additional Past Surgical History / Comment(s): Oral Surgery 1990s, per patient. Past Anesthesia/Blood Transfusion Reactions: No Reported Reaction Past Psychological History: ADD/ADHD, Anxiety, Depression Smoking Status: Never smoker Past Alcohol Use History: None Reported Past Drug Use History: None Reported - Past Family History Father Family Medical History: No Reported History Additional Family Medical History / Comment(s): Father is approximately 50 years of age. Patient has no contact with his father. Mother Family Medical History: No Reported History Additional Family Medical History / Comment(s): Mother is age 48 and healthy with no major medical problems. Sister(s) Family Medical History: No Reported History Additional Family Medical History / Comment(s): He has 2 sisters with no major medical problems. Patient does not have any brothers. General Exam Limitations: altered mental status General appearance: alert, in distress Head exam: Present: atraumatic, normocephalic Eye exam: Present: PERRL, EOMI ENT exam: Present: other (the patient arrives with his tongue protruding from his mouth. No tongue swelling. There is mild bleeding at the edges. floor of mouth is soft) Neck exam: Present: normal inspection. Absent: tenderness, meningismus Respiratory exam: Present: normal lung sounds bilaterally. Absent: respiratory distress, wheezes, rales, rhonchi Cardiovascular Exam: Present: normal rhythm, tachycardia GI/Abdominal exam: Present: soft Extremities exam: Present: full ROM Neurological exam: Present: alert, altered, normal gait Psychiatric exam: Present: agitated, anxious, manic Skin exam: Present: warm, dry, intact Course Vital Signs 04/08/19 04/09/19 04/09/19 17:18 00:00 02:00 Temperature 98 F Pulse Rate 122 H 115 H 106 H Respiratory 20 18 19 Rate Blood Pressure 158/53 146/53 105/84 O2 Sat by Pulse 98 97 96 Oximetry 04/09/19 03:51 Temperature 98.3 F Pulse Rate 108 H Respiratory 18 Rate Blood Pressure 125/84 O2 Sat by Pulse 99 Oximetry Procedures - Restraint - Face to Face Restraint Occurrence 1 Patient's Immediate Situation: Endangers self safety Patient's Reaction to the Intervention: Anxious, Bizarre Patient's Medical & Behavioral Condition: Awake, Alert, Follows directions Need to Continue or Terminate Restraint or Seclusion: Continue Face to Face Eval of Restraint Date: 04/08/19 Face to Face Eval of Restraint Time: 17:10 Medical Decision Making - Medical Decision Making Upon arrival the patient was placed into room 13. I was unable to attain much information originally. The patient is on second-generation antipsychotics. He does demonstrate a tardive dyskinesia upon presentation. Because of this I did recommend treatment with Ativan. The patient was given 2 mg of Ativan IM. He is observed for 30 minutes and continues his same presenting behavior. Because of this I did recommend treatment with Benadryl. The patient agreed and he was given 50 mg. The patient does calm down. He is repetitively evaluated over the course of several hours. The nursing staff does attempt to straight cath the patient twice however he does not tolerate it. He does become alert and oriented. The patient does disclose that he has been using methamphetamines for several days. States that he has not slept in the past few days. He denies any other drug use. Reports that he has not taken his prescribed medications in 3 days. He denies any tongue swelling or difficulty breathing. Denies any difficulty swallowing. The patient denied any suicidal or homicidal ideations. Reports that he does have a history of hallucinations in the past due to his mental illness however has no auditory or visual hallucinations at this time. He does follow up with [facility]. As the patient is of sound mind I did discuss discharging from the hospital for which the patient agrees. Patient was discharged however attempted to use the restroom before he left. The patient comes out states to me that he has acute urinary retention. A bladder scan was performed and demonstrated greater than 450 mL of urine in the patient's bladder. The patient is given Toradol for pain control and I am concerned that he may have sustained trauma from the attempted straight caths. We also provided the patient with a Urojet. He does attempt to void however still cannot. He has no history of acute urinary retention in the past. I did recommend a CT of the patient's abdomen and pelvis which the patient did agree to. He does demonstrate a distended bladder however no other findings. I did discuss with the patient the imperative nature of draining his bladder. Jazmyne the nurse practitioner and myself are able to place a Muñoz catheter in the patient with ease. It does drain a significant amount of clear urine. We will send a urinalysis. I did recommend admission to the hospital as I am concerned about the patient going home with a muñoz and his history of methamphetamine use. I did call discuss case with Dr. Johns who did accept admission on behalf of the patient. I will consult urology. The patient is at his baseline mentation and therefore I do not believe psych need to be involved. The patient did agree to treatment plan and he is awaiting a bed on the floor - Lab Data Result diagrams: 04/11/19 07:45 04/11/19 07:45 Lab Results 04/08/19 04/08/19 04/09/19 Range/Units 18:00 18:00 01:40 WBC 10.3 (3.8-10.6) k/uL RBC 5.39 (4.30-5.90) m/uL Hgb 16.2 (13.0-17.5) gm/dL Hct 45.7 (39.0-53.0) % MCV 84.7 (80.0-100.0) fL MCH 30.0 (25.0-35.0) pg MCHC 35.5 (31.0-37.0) g/dL RDW 13.4 (11.5-15.5) % Plt Count 376 (150-450) k/uL Neutrophils % 76 % Lymphocytes % 13 % Monocytes % 7 % Eosinophils % 0 % Basophils % 0 % Neutrophils # 7.9 H (1.3-7.7) k/uL Lymphocytes # 1.3 (1.0-4.8) k/uL Monocytes # 0.7 (0-1.0) k/uL Eosinophils # 0.0 (0-0.7) k/uL Basophils # 0.0 (0-0.2) k/uL Sodium 141 (137-145) mmol/L Potassium 3.8 (3.5-5.1) mmol/L Chloride 99 (98-107) mmol/L Carbon Dioxide 28 (22-30) mmol/L Anion Gap 14 mmol/L BUN 18 (9-20) mg/dL Creatinine 1.14 (0.66-1.25) mg/dL Est GFR (CKD-EPI)AfAm >90 (>60 ml/min/1.73 sqM) Est GFR (CKD-EPI)NonAf 83 (>60 ml/min/1.73 sqM) Glucose 109 H (74-99) mg/dL Calcium 9.9 (8.4-10.2) mg/dL Urine Color Yellow Urine Appearance Clear (Clear) Urine pH 6.5 (5.0-8.0) Ur Specific Burton 1.032 (1.001-1.035) Urine Protein 1+ H (Negative) Urine Glucose (UA) 3+ H (Negative) Urine Ketones 1+ H (Negative) Urine Blood Trace H (Negative) Urine Nitrite Negative (Negative) Urine Bilirubin Negative (Negative) Urine Urobilinogen 2.0 (<2.0) mg/dL Ur Leukocyte Esterase Negative (Negative) Urine RBC 5 (0-5) /hpf Urine WBC 2 (0-5) /hpf Ur Squamous Epith Cells 4 (0-4) /hpf Hyaline Casts 7 H (0-2) /lpf Urine Mucus Moderate H (None) /hpf Urine Sperm Many H (None) /hpf Salicylates <1.0 mg/dL Acetaminophen <10.0 ug/mL Serum Alcohol <10 mg/dL Disposition Clinical Impression: Methamphetamine abuse, Hallucination, drug-induced, Acute urinary retention Disposition: ADMITTED IP TO THIS [facility] Condition: Stable Is patient prescribed a controlled substance at d/c from ED?: No Decision to Admit Reason: Admit from EC Decision Date: 04/09/19 Decision Time: 02:15
[2019-04-08] MEDS ORDERED: KETOROLAC 60 MG/2 ML VIAL IM STA (21:46)
[2019-04-08] MEDS ORDERED: LIDOCAINE URO-JET JELLY 2% 5 ML KIT URETHRAL ONE (21:50)
--- NOTE | 2019-04-09 01:03 | CT ---
History: ITS.REASON CT Reason: Pain Exam: CT ABDOMEN + PELVIS With Contrast Technique more: CTDI is 19.6 mGy and DLP is 1540.2 mGy-cm. Technique more: This CT exam was performed using one or more of the following dose reduction techniques: automated exposure control, adjustment of the mA and/or kV according to patient size, and/or use of iterative reconstruction technique. Comparison: None available FINDINGS: The lung bases are clear. Appearance of hepatic steatosis. The other abdominal solid organs, gallbladder and abdominal aorta appear within limits. No bowel dilation or free air. Normal caliber appendix without secondary signs. The bladder is distended, clinically correlate. No evidence of wall thickening or surrounding inflammatory change. No free fluid. IMPRESSION: The bladder is distended, clinically correlate. No free fluid. Appearance of hepatic steatosis.
[2019-04-09] MEDS ORDERED: LIDOCAINE URO-JET JELLY 2% 5 ML KIT URETHRAL ONE (01:21)
[2019-04-09 02:07] LABS: Appearance,Urine Clear (Clear); Bilirubin,Urine Negative (Negative); Blood,Urine Trace (Negative); Color,Urine Yellow; Glucose,Urine (UA) 3+ (Negative); Hyaline Casts,Urine 7 /lpf (0-2); Ketones,Urine 1+ (Negative); Leukocyte Esterase,Urine Negative (Negative); Mucus,Urine Moderate /hpf; Nitrite,Urine Negative (Negative); PH, Urine 6.5 (5.0-8.0); Protein,Urine 1+ (Negative); RBC,Urine 5 /hpf (0-5); Specific Gravity,Urine 1.032 (1.001-1.035); Sperm,Urine Many /hpf; Squamous Epithelial Cell,Urine 4 /hpf (0-4)
[2019-04-09] MEDS ORDERED: NALOXONE 0.4 MG/ML 1 ML VIAL IV PRN (02:15)
[2019-04-09] MEDS ORDERED: IBUPROFEN 400 MG TAB PO STA (03:15)
[2019-04-09 04:44] VITALS: BMI 27.9
[2019-04-09] MEDS ORDERED: cloNIDine HCL 0.1 MG TAB PO PRN (10:20)
[2019-04-09] MEDS ORDERED: ACETAMINOPHEN TAB 325 MG TAB PO PRN (10:21)
[2019-04-09] MEDS ORDERED: ONDANSETRON 4 MG/2 ML VIAL IVP PRN (10:21)
[2019-04-09] MEDS: buPROPion SR 150 MG TABLET.ER PO SCH (11:07)
--- NOTE | 2019-04-09 11:19 | P.GSCN ---
History of Present Illness Consult date: 04/09/19 Reason for Consult: Urinary retention History of present illness: The patient's a 33-year-old male who presented to the emergency room yesterday evening xperiencing tardive dyskinesia with a protruding tongue which he repeatedly tried to grab. The patient was unable to provide any history at that time. A urine sample was requested but the patient was unable to void. Two attempts were made to insert a catheter and this proved unsuccessful. Computed tomography scan of the abdomen and pelvis was obtained and showed a distended bladder but no other abnormalities of the urinary system. Eventually a Joel catheter was placed and dried 900 mL of clear urine. The patient has been admitted for further evaluation. The patient denies any previous history of urinary retention. He says he normally voids with a good urinary flow every 3-5 hours during the day and only rarely at night. He has no history of incontinence, dysuria, UTI or hematuria. He says his bowels usually move normally. Review of Systems - Constitutional Denies chills, Denies fever - Cardiovascular Reports high blood pressure, Reports palpitations, Denies syncope - Respiratory Denies cough, Denies wheezing - Gastrointestinal Denies abdominal pain, Denies heartburn - Genitourinary Reports as per HPI Past Medical History Past Medical History: No Reported History Additional Past Medical History / Comment(s): chronic back pain, migraine, seasonal ALLERGIES, kidney stones History of Any Multi-Drug Resistant Organisms: None Reported Past Surgical History: No Surgical Hx Reported Additional Past Surgical History / Comment(s): Oral Surgery 1990s, per patient. Past Anesthesia/Blood Transfusion Reactions: No Reported Reaction Past Psychological History: ADD/ADHD, Anxiety, Depression Smoking Status: Never smoker Past Alcohol Use History: None Reported Past Drug Use History: None Reported, Marijuana Additional Drug Use History / Comment(s): Pt. admits to smoking meth occassionally-Last use was 04/07/19. Pt. admits he has a past history of Heroin use. - Past Family History Father Family Medical History: No Reported History Additional Family Medical History / Comment(s): Father is approximately 50 years of age. Patient has no contact with his father. Mother Family Medical History: No Reported History Additional Family Medical History / Comment(s): Mother is age 48 and healthy with no major medical problems. Sister(s) Family Medical History: No Reported History Additional Family Medical History / Comment(s): He has 2 sisters with no major medical problems. Patient does not have any brothers. Medications and Allergies Home Medications Medication Instructions Recorded Confirmed Type OLANZapine [ZyPREXA] 20 mg PO HS 04/08/19 04/08/19 History buPROPion HCL [Wellbutrin SR] 300 mg PO DAILY 04/08/19 04/08/19 History cloNIDine HCL [Catapres] 0.1 mg PO BID PRN 04/08/19 04/08/19 History Allergies Allergy/AdvReac Type Severity Reaction Status Date / Time No Known Allergies Allergy Verified 04/08/19 18:26 Surgical - Exam Vital Signs Temp Pulse Resp BP Pulse Ox 98 F 122 H 20 158/53 98 04/08/19 17:18 04/08/19 17:18 04/08/19 17:18 04/08/19 17:18 04/08/19 17:18 - General well developed, well nourished, no distress - ENT no hearing loss - Neck no masses, no lymphadectomy - Respiratory normal respiratory effort - Abdomen Abdomen: soft, non tender, no organomegaly - Genitourinary normal penis with no external lesions, testicles present, other (Joel catheter is in place and is draining clear urine) Results - Labs 04/08/19 18:00 04/08/19 18:00 Abnormal Lab Results - Last 24 Hours (Table) 04/08/19 04/08/19 04/09/19 Range/Units 18:00 18:00 01:40 Neutrophils # 7.9 H (1.3-7.7) k/uL Glucose 109 H (74-99) mg/dL Urine Protein 1+ H (Negative) Urine Glucose (UA) 3+ H (Negative) Urine Ketones 1+ H (Negative) Urine Blood Trace H (Negative) Hyaline Casts 7 H (0-2) /lpf Urine Mucus Moderate H (None) /hpf Urine Sperm Many H (None) /hpf Diabetes panel 04/08/19 Range/Units 18:00 Sodium 141 (137-145) mmol/L Potassium 3.8 (3.5-5.1) mmol/L Chloride 99 (98-107) mmol/L Carbon Dioxide 28 (22-30) mmol/L BUN 18 (9-20) mg/dL Creatinine 1.14 (0.66-1.25) mg/dL Glucose 109 H (74-99) mg/dL Calcium 9.9 (8.4-10.2) mg/dL Calcium panel 04/08/19 Range/Units 18:00 Calcium 9.9 (8.4-10.2) mg/dL Pituitary panel 04/08/19 Range/Units 18:00 Sodium 141 (137-145) mmol/L Potassium 3.8 (3.5-5.1) mmol/L Chloride 99 (98-107) mmol/L Carbon Dioxide 28 (22-30) mmol/L BUN 18 (9-20) mg/dL Creatinine 1.14 (0.66-1.25) mg/dL Glucose 109 H (74-99) mg/dL Calcium 9.9 (8.4-10.2) mg/dL Adrenal panel 04/08/19 Range/Units 18:00 Sodium 141 (137-145) mmol/L Potassium 3.8 (3.5-5.1) mmol/L Chloride 99 (98-107) mmol/L Carbon Dioxide 28 (22-30) mmol/L BUN 18 (9-20) mg/dL Creatinine 1.14 (0.66-1.25) mg/dL Glucose 109 H (74-99) mg/dL Calcium 9.9 (8.4-10.2) mg/dL Assessment and Plan Assessment: Urinary retention-possibly related to altered mental state yesterday evening. No previous history of difficulty voiding. Plan: The patient's catheter will be removed. He will be followed with the bladder scan unit and as long as he is able to void with acceptably low postvoid residuals no further urologic evaluation will be necessary.
--- NOTE | 2019-04-09 11:20 | P.HPIM ---
History of Present Illness H&P Date: 04/09/19 The 33-year-old male patient who presents to the ER with complaints of protruding tongue from his mouth. Patient does admit that he took methamphetamines earlier in the day. According to the report patient was admitted for time and appeared anxious patient has a known past medical history of chronic back pain, migraine, ADHD, anxiety depression and drug use. During time in ER patient was unable to use the restroom was found to have urinary retention. Joel catheter was placed. CT of abdomen and pelvis completed showing bladder distention correlate free fluid appearance of hepatic steatosis. Dr. More has been consulted from urology services. Psychiatry service is consulted. Patient is resting comfortably bed with no complaints. Patient reports that tongue complaints have improved. At this time patient denies chest pain or shortness breath. Patient denies nausea vomiting or diarrhea. Patient denies any urinary burning and frequency Review of Systems Please refer to HPI otherwise unremarkable Past Medical History Past Medical History: No Reported History Additional Past Medical History / Comment(s): chronic back pain, migraine, seasonal ALLERGIES, kidney stones History of Any Multi-Drug Resistant Organisms: None Reported Past Surgical History: No Surgical Hx Reported Additional Past Surgical History / Comment(s): Oral Surgery 1990s, per patient. Past Anesthesia/Blood Transfusion Reactions: No Reported Reaction Past Psychological History: ADD/ADHD, Anxiety, Depression Smoking Status: Never smoker Past Alcohol Use History: None Reported Past Drug Use History: None Reported, Marijuana Additional Drug Use History / Comment(s): Pt. admits to smoking meth occassionally-Last use was 04/07/19. Pt. admits he has a past history of Heroin use. - Past Family History Father Family Medical History: No Reported History Additional Family Medical History / Comment(s): Father is approximately 50 years of age. Patient has no contact with his father. Mother Family Medical History: No Reported History Additional Family Medical History / Comment(s): Mother is age 48 and healthy with no major medical problems. Sister(s) Family Medical History: No Reported History Additional Family Medical History / Comment(s): He has 2 sisters with no major medical problems. Patient does not have any brothers. Medications and Allergies Home Medications Medication Instructions Recorded Confirmed Type OLANZapine [ZyPREXA] 20 mg PO HS 04/08/19 04/08/19 History buPROPion HCL [Wellbutrin SR] 300 mg PO DAILY 04/08/19 04/08/19 History cloNIDine HCL [Catapres] 0.1 mg PO BID PRN 04/08/19 04/08/19 History Allergies Allergy/AdvReac Type Severity Reaction Status Date / Time No Known Allergies Allergy Verified 04/08/19 18:26 Physical Exam Vitals: Vital Signs Temp Pulse Pulse Resp BP BP Pulse Ox 04/09/19 07:00 97.8 F 110 H 16 123/77 99 04/09/19 04:35 97.8 F 104 H 16 129/89 96 04/09/19 03:51 98.3 F 108 H 18 125/84 99 04/09/19 02:00 106 H 19 105/84 96 04/09/19 00:00 115 H 18 146/53 97 04/08/19 17:18 98 F 122 H 20 158/53 98 Intake and Output 04/08/19 04/09/19 04/09/19 22:59 06:59 14:59 Output Total 900 Balance -900 Output: Urine 900 Uretheral (Joel) 900 Other: Voiding Method Indwelling Catheter Indwelling Catheter # Bowel Movements 1 Weight 83.461 kg Head normocephalic Neck supple Lungs clear to auscultation bilaterally no wheezing or crackles Heart regular rate and rhythm S1-S2, no rub or gallop Abdomen is soft nontender nondistended positive bowel sounds no hepatosplenomegaly Extremities no edema Neuro alert and orientated to 3 Results CBC & Chem 7: 04/08/19 18:00 04/08/19 18:00 Labs: Abnormal Lab Results - Last 24 Hours (Table) 04/08/19 04/08/19 04/09/19 Range/Units 18:00 18:00 01:40 Neutrophils # 7.9 H (1.3-7.7) k/uL Glucose 109 H (74-99) mg/dL Urine Protein 1+ H (Negative) Urine Glucose (UA) 3+ H (Negative) Urine Ketones 1+ H (Negative) Urine Blood Trace H (Negative) Hyaline Casts 7 H (0-2) /lpf Urine Mucus Moderate H (None) /hpf Urine Sperm Many H (None) /hpf Thrombosis Risk Factor Assmnt - Choose All That Apply Any of the Below Risk Factors Present?: No Assessment and Plan Assessment: 1. Increased confusion likely related to drug abuse. Patient reports he took methamphetamines. Symptoms have resolved psychiatry services have been consulted. Drug screen has been ordered 2. Urinary retention. Joel catheter has been placed. CT of abdomen completed showing bladder distention clinically correlate no free fluid. Appearance of hepatic steatosis. Repeat urinalysis ordered 3. Previous history of suicidal ideation requiring inpatient psych 4. History of ADHD 5. History of anxiety and depression 6. History of drug use including methamphetamines and heroin 7. History of chronic back pain DVT prophylaxis heparin. GI prophylaxis Pepcid Urology and psychiatry services consulted Time with Patient: Greater than 30 (Greater than 60% of the total time spent in counseling and coordination of care. I performed an examination of the patient and discussed their management with the Nurse Practitioner. I have reviewed the Nurse Practitioner's notes and agree with the documented findings and plan of care)
--- NOTE | 2019-04-09 16:43 | P.CN ---
Psychiatric Consult - . Consult date: 04/09/19 Consult:: 04/09/19 15:44 Identifying Data: Patient is a 33 yo male who currently lives in a correction, has no kids is unmarried and collects SSI HPI: Patient has a chronic psychiatric history of psychosis along with methamphetamine abuse was brought in to the ED yesterday due to patient having tardive dyskinesia and appeareing to have blood around his mouth. Patient was sticking out his tongue accorind to ED report and patient was trying to grab it. Patient was going to be dishcarged from the ED after recieving IM 50mg of benadryl and 2mg of Ativan back home when patient complained of acute urinary retention as he could not use the bathroom in the ER and was subsequently admitted to medicine as patient had no previous history of voiding difficulties. Psychiatry was consulted for drug abuse and having a previous psychiatric hisotry. Patient was seen at the bedside today by credit underwriter and patient was cooperative and pleasant during interview. Patient was in a constant writhing motion during the interview and spoke of feeling facial pain and having an increase in his tongue movements which concerned him enough to come to the emergency room. Patient states that this has been going on for one week and states that it may be related to his methamphetamine use. Patient states that he has never experienced this movement before in his life. He claims that his mood is "good" and denies any depressive symptoms at this time. Patient denies any anxiety or any manic symptoms. Patient is not endorsing any psychotic symptoms including hallucinations or delusions or paranoia. Patient was logical and goal or goal oriented. Patient states that he was recently at [facility] last month was there for 2 weeks however relapsed shortly after on methamphetamine. He states that he was in rehab 5-6 times in the past for his drug use. At this time patient denies any suicidal homicidal ideations intent or plan. Patient claims that he has been compliant with his medications for years including his Zyprexa and Wellbutrin. Patient follows up with [facility] with Dr. Triana and last was seen 2 weeks ago. Psych Hx: patient has been admitted to the [facility] several times in the past for meth abuse along with halluicnations and psychosis. Last admission was in 05/2018. Patient was previously on seroquel, wellbutrin and zyprexa. Patient is currently following up at [facility] in [place]. Patient states that his last visit to Dr. Triana was 2 weeks ago. Patient denies any previous suicide attempts. PMhx: back pain, migraines Family Hx: Denies Social Hx: Patient claims that he was born and raised in [facility] and claims that he completed 12th grade of high school and worked in different factories. He states that he stopped over a month ago working. Patient is currently unmarried and has no kids lives in a correction and collects SSI. Substance use Hx: Patient admits to using methamphetamine, snorting it. He states that he has been using for the past 2 weeks using approximately half a gram per week. Patient denies any cigarette smoking or any alcohol use and denies any other recreational substance use. Patient claims that he has been to [facility] 5[facility] times in the past most recently was in [facility] last month for 2 weeks. MENTAL STATUS EXAM: General Appearance: Patient appears to be stated age is alert, pleasant, and cooperative. Patient is in a constant writhing motion during interview. Has fair hygiene and poor grooming. Behavior: Patient is lying in bed without any agitated behavior. Speech: Patient's speech is fluent and nonpressured. Mood/Affect: Patient reports their mood is "fine", affect is congruent Suicidality/Homicidality: Patient denies having any suicidal or homicidal ideation intent or plan. Perceptions: Patient denies any auditory or visual hallucinations. Though content/process: There is no evidence of any delusional thought content and thought process is linear and goal-directed. Memory and concentration: AOX3, grossly intact for the purposes of this session. Can spell "WORLD" backwards Judgment and insight: fair IMPRESSIONS: Psychosis unspecified Tardive dyskinesia PLAN: -At this time patient patient does NOT meet criteria for inpatient psychiatric admission. -It appears that the movements that patient is exhibiting tardive dyskinesia and may have been exacerbated by methamphetamine use and unclear if patient has been on first-generation antipsychotics in the past which may have started this. -Would recommend the following medication changes/additions: I spoke with patient in detail about the different options for treatment of tardive dyskinesia and patient states that he would like to speak to his psychiatrist after being discharged from the hospital about the options. I informed him of Curtza which is a newer medication with the indication for tardive dyskinesia, however at this time may be costly. -At this time will continue olanzapine 20 mg daily at bedtime for psychosis and Wellbutrin 300 mg daily for mood. Cogentin and Benadryl for tardive dyskinesia may not be beneficial at this time as it may cause more side effects and problems. -Unsure of etiology for acute urinary retention, may be related to IM Benadryl given in the ER. Urology to follow up. -Psychiatry will sign off at this point Thank you for the consult 04/09/19 16:29 04/09/19 16:41
[2019-04-09] MEDS: OLANZapine 10 MG TAB PO SCH (22:53)
[2019-04-09] MEDS: HEPARIN SODIUM,PORCINE 5,000 UNIT/ML 1 ML VIAL SQ SCH (22:54)
[2019-04-10 00:03] LABS: Appearance,Urine Clear (Clear); Bilirubin,Urine Negative (Negative); Blood,Urine Moderate (Negative); Color,Urine Yellow; Glucose,Urine (UA) 4+ (Negative); Ketones,Urine Trace (Negative); Leukocyte Esterase,Urine Trace (Negative); Mucus,Urine Occasional /hpf; Nitrite,Urine Negative (Negative); Protein,Urine 1+ (Negative); RBC,Urine 29 /hpf (0-5); Specific Gravity,Urine 1.028 (1.001-1.035); Sperm,Urine Moderate /hpf; Urobilinogen,Urine <2.0 mg/dL (<2.0); WBC,Urine 9 /hpf (0-5)
[2019-04-10 00:13] LABS: Amphetamine Screen,Urine Detected (NotDetected); Barbiturate Screen,Urine Not Detected (NotDetected); Benzodiazepines Screen,Urine Detected (NotDetected); Cocaine Screen,Urine Not Detected (NotDetected); Methadone Screen, Urine Not Detected (NotDetected); Opiate Screen,Urine Not Detected (NotDetected); Oxycodone Screen, Urine Not Detected (NotDetected); Phencyclidine Screen,Urine Not Detected (NotDetected); Tricyclic Antidepressant,Urine Not Detected (NotDetected); Urn Cannabinoid Scrn Not Detected (NotDetected)
[2019-04-10 07:35] LABS: ALT 29 U/L (21-72); AST 22 U/L (17-59); African American GFR (CKD) >90 (>60 ml/min/1.73 sqM); Alkaline Phosphatase 89 U/L (38-126); Anion Gap 6 mmol/L; Basophils # (A) 0.1 k/uL (0-0.2); Basophils % (A) 1 %; Blood Urea Nitrogen 10 mg/dL (9-20); Calcium 9.3 mg/dL (8.4-10.2); Carbon Dioxide 33 mmol/L (22-30); Chloride 100 mmol/L (98-107); Eosinophils # (A) 0.1 k/uL (0-0.7); Eosinophils % (A) 1 %; Glucose 96 mg/dL (74-99); HGB 14.6 gm/dL (13.0-17.5); Lymphocytes # (A) 2.4 k/uL (1.0-4.8); Lymphocytes % (A) 41 %; MCH 29.9 pg (25.0-35.0); MCHC 34.8 g/dL (31.0-37.0); MCV 86.1 fL (80.0-100.0); Mean Platelet Volume 6.8; Monocytes # (A) 0.5 k/uL (0-1.0); Monocytes % (A) 8 %; Neutrophils # (A) 2.6 k/uL (1.3-7.7); Neutrophils % (A) 44 %; Platelet Count 289 k/uL (150-450); Potassium 3.3 mmol/L (3.5-5.1); RBC 4.88 m/uL (4.30-5.90); RDW 13.3 % (11.5-15.5); Sodium 139 mmol/L (137-145); Total Bilirubin 0.8 mg/dL (0.2-1.3); Total Protein 6.5 g/dL (6.3-8.2); WBC 5.9 k/uL (3.8-10.6)
[2019-04-10] MEDS ORDERED: Potassium Replacement Protocol 1 EACH MISC MISCELLANE PRN (08:49)
[2019-04-10] MEDS: POTASSIUM CHLORIDE ER 20 MEQ TAB.ER PO SCH ×4 (09:53→16:04)
[2019-04-10] MEDS: buPROPion SR 150 MG TABLET.ER PO SCH (09:53)
[2019-04-10] MEDS: HEPARIN SODIUM,PORCINE 5,000 UNIT/ML 1 ML VIAL SQ SCH ×2 (09:53→19:58)
[2019-04-10] MEDS: FAMOTIDINE 20 MG TAB PO SCH (09:53)
--- NOTE | 2019-04-10 14:09 | P.PN ---
Subjective Progress Note Date: 04/10/19 The 33-year-old male patient who presents to the ER with complaints of protruding tongue from his mouth. Patient does admit that he took methamphetamines earlier in the day. According to the report patient was admitted for time and appeared anxious patient has a known past medical history of chronic back pain, migraine, ADHD, anxiety depression and drug use. During time in ER patient was unable to use the restroom was found to have urinary retention. Joel catheter was placed. CT of abdomen and pelvis completed showing bladder distention correlate free fluid appearance of hepatic steatosis. Dr. More has been consulted from urology services. Psychiatry service is consulted. Patient is resting comfortably bed with no complaints. Patient reports that tongue complaints have improved. At this time patient denies chest pain or shortness breath. Patient denies nausea vomiting or diarrhea. Patient denies any urinary burning and frequency On 04/10/2019 patient's alert and oriented 3. Patient is complaining about difficulty with urination and pain. UA showing small amount of leukocyte Estrace. Patient started on Rocephin for urinary tract infection. Dr. More following for urology services. Discussed with nursing staff to check post void residuals and discuss with urology. Patient denies chest pain or shortness of breath. Patient denies nausea vomiting or diarrhea Objective - Vital Signs Vital signs: Vital Signs Temp 97.8 F 04/10/19 07:00 Pulse 77 04/10/19 07:00 Resp 17 04/10/19 07:00 BP 103/69 04/10/19 07:00 Pulse Ox 100 04/10/19 07:00 Intake & Output 04/09/19 04/10/19 04/10/19 18:59 06:59 18:59 Intake Total 500 1000 360 Output Total 400 1325 360 Balance 100 -325 0 Intake: Oral 500 1000 360 Output: Urine 400 950 360 Uretheral (Joel) 400 Post Void Residual 375 Other: Voiding Method Indwelling Catheter - Exam Head normocephalic. Small abrasions noted to tongue Neck supple Lungs clear to auscultation bilaterally no wheezing or crackles Heart regular rate and rhythm S1-S2, no rub or gallop Abdomen is soft nontender nondistended positive bowel sounds no hepatosplenomegaly Extremities no edema Neuro alert and orientated to 3 - Labs CBC & Chem 7: 04/10/19 06:30 04/10/19 12:05 Labs: Abnormal Lab Results - Last 24 Hours (Table) 04/09/19 04/09/19 04/10/19 Range/Units 23:29 23:29 06:30 Potassium 3.3 L (3.5-5.1) mmol/L Carbon Dioxide 33 H (22-30) mmol/L Urine Protein 1+ H (Negative) Urine Glucose (UA) 4+ H (Negative) Urine Ketones Trace H (Negative) Urine Blood Moderate H (Negative) Ur Leukocyte Esterase Trace H (Negative) Urine RBC 29 H (0-5) /hpf Urine WBC 9 H (0-5) /hpf Urine Mucus Occasional H (None) /hpf Urine Sperm Moderate H (None) /hpf Ur Amphetamines Screen Detected H (NotDetected) U Methamphetamines Scrn Detected H (NotDetected) U Benzodiazepines Scrn Detected H (NotDetected) Assessment and Plan Assessment: 1. Increased confusion likely related to drug abuse. Patient reports he took methamphetamines. Symptoms have resolved psychiatry services have been consulted. Patient was evaluated by psychiatry services. Symptoms related to tongue likely from cardiac dyskinesia. Per psychiatry continue current medical regime would recommend patient follow up with outpatient psychiatrist. Patient does not meet criteria for inpatient psychiatry admission 2. Urinary retention. Joel catheter has been placed. CT of abdomen completed showing bladder distention clinically correlate no free fluid. Appearance of hepatic steatosis. Joel catheter removed. Post residuals to recheck. Urology following 3. Previous history of suicidal ideation requiring inpatient psych 4. History of ADHD 5. History of anxiety and depression 6. History of drug use including methamphetamines and heroin 7. History of chronic back pain 8. Urinary tract infection. Urine culture ordered. Patient started on Rocephin DVT prophylaxis heparin. GI prophylaxis Pepcid Urology and psychiatry services consulted I performed an examination of the patient and discussed their management with the Nurse Practitioner. I have reviewed the Nurse Practitioner's notes and agree with the documented findings and plan of care
[2019-04-10] MEDS ORDERED: POTASSIUM CHLORIDE ER 20 MEQ TAB.ER PO SCH (19:30)
[2019-04-10] MEDS: OLANZapine 10 MG TAB PO SCH (19:58)
[2019-04-11 07:54] VITALS: RESP 15
[2019-04-11 08:15] LABS: ALT 32 U/L (21-72); AST 20 U/L (17-59); African American GFR (CKD) >90 (>60 ml/min/1.73 sqM); Albumin 3.6 g/dL (3.5-5.0); Alkaline Phosphatase 71 U/L (38-126); Anion Gap 6 mmol/L; Blood Urea Nitrogen 10 mg/dL (9-20); Calcium 8.6 mg/dL (8.4-10.2); Carbon Dioxide 30 mmol/L (22-30); Chloride 106 mmol/L (98-107); Glucose 70 mg/dL (74-99); Potassium 3.8 mmol/L (3.5-5.1); Sodium 142 mmol/L (137-145); Total Bilirubin 0.4 mg/dL (0.2-1.3); Total Protein 6.1 g/dL (6.3-8.2)
[2019-04-11] MEDS: HEPARIN SODIUM,PORCINE 5,000 UNIT/ML 1 ML VIAL SQ SCH (08:23)
[2019-04-11] MEDS: buPROPion SR 150 MG TABLET.ER PO SCH (08:23)
[2019-04-11] MEDS: FAMOTIDINE 20 MG TAB PO SCH (08:23)
[2019-04-11 09:10] LABS: Basophils % (A) 1 %; Eosinophils % (A) 1 %; HCT 40.1 % (39.0-53.0); HGB 13.8 gm/dL (13.0-17.5); Lymphocytes # (A) 1.7 k/uL (1.0-4.8); Lymphocytes % (A) 41 %; MCH 30.3 pg (25.0-35.0); MCHC 34.4 g/dL (31.0-37.0); MCV 88.1 fL (80.0-100.0); Monocytes # (A) 0.3 k/uL (0-1.0); Monocytes % (A) 8 %; Neutrophils % (A) 47 %; Platelet Count 277 k/uL (150-450); RBC 4.56 m/uL (4.30-5.90); RDW 15.7 % (11.5-15.5); WBC 4.3 k/uL (3.8-10.6)
--- NOTE | 2019-04-11 13:42 | P.DS ---
Providers Date of admission: 04/09/19 02:17 Expected date of discharge: 04/11/19 Attending physician: Werenr Johns Consults: 04/09/19 02:16 Consult Physician Urgent Consulting Provider: Logan More Consult Reason/Comments: acute urinary retention Do you want consulting provider notified?: Yes, Notify in am 04/09/19 10:19 Consult Physician Routine Consulting Provider: Eloy Tesfaye Consult Reason/Comments: Drug use psych history Do you want consulting provider notified?: Yes Hospital Course: Discharge diagnosis 1. Increased confusion likely related to drug abuse. Patient reports he took methamphetamines. Symptoms have resolved psychiatry services have been consulted. Patient was evaluated by psychiatry services. Symptoms related to tongue likely from cardiac dyskinesia. Per psychiatry continue current medical regime would recommend patient follow up with outpatient psychiatrist. Patient does not meet criteria for inpatient psychiatry admission 2. Urinary retention. Joel catheter has been placed. CT of abdomen completed showing bladder distention clinically correlate no free fluid. Appearance of hepatic steatosis. Joel catheter removed. Post residuals to recheck. Urology following 3. Previous history of suicidal ideation requiring inpatient psych 4. History of ADHD 5. History of anxiety and depression 6. History of drug use including methamphetamines and heroin 7. History of chronic back pain 8. Urinary tract infection. Urine culture ordered. Patient started on Rocephin. discharged on Ceftin for one week Hospital course The 33-year-old male patient who presents to the ER with complaints of protruding tongue from his mouth. Patient does admit that he took methamphetamines earlier in the day. According to the report patient was admitted for time and appeared anxious patient has a known past medical history of chronic back pain, migraine, ADHD, anxiety depression and drug use. During time in ER patient was unable to use the restroom was found to have urinary retention. Joel catheter was placed. CT of abdomen and pelvis completed showing bladder distention correlate free fluid appearance of hepatic steatosis. Dr. More has been consulted from urology services. Psychiatry service is consulted. Patient is resting comfortably bed with no complaints. Patient reports that tongue complaints have improved. At this time patient denies chest pain or shortness breath. Patient denies nausea vomiting or diarrhea. Patient denies any urinary burning and frequency On 04/10/2019 patient's alert and oriented 3. Patient is complaining about difficulty with urination and pain. UA showing small amount of leukocyte Estrace. Patient started on Rocephin for urinary tract infection. Dr. More following for urology services. Discussed with nursing staff to check post void residuals and discuss with urology. Patient denies chest pain or shortness of breath. Patient denies nausea vomiting or diarrhea 04/11/2019 patient's alert and oriented 3. Patient to be discharged home. Patient will be discharged on Ceftin for one week. Patient denies chest pain or shortness of breath. Patient denies nausea vomiting or diarrhea. Patient still having some discomfort with urination likely due to trauma during catheterization. Patient to follow-up with PCP in outpatient setting for further management patient also educated on not using drugs. I performed an examination of the patient and discussed their management with the Nurse Practitioner. I have reviewed the Nurse Practitioner's notes and agree with the documented findings and plan of care Patient Condition at Discharge: Stable Plan - Discharge Summary Discharge Rx Participant: No New Discharge Prescriptions: New Cefuroxime Axetil [Ceftin] 500 mg PO BID 7 Days #14 tab Continue buPROPion HCL [Wellbutrin SR] 300 mg PO DAILY cloNIDine HCL [Catapres] 0.1 mg PO BID PRN PRN Reason: Anxiety OLANZapine [ZyPREXA] 20 mg PO HS Discharge Medication List OLANZapine [ZyPREXA] 20 mg PO HS 04/08/19 [History] buPROPion HCL [Wellbutrin SR] 300 mg PO DAILY 04/08/19 [History] cloNIDine HCL [Catapres] 0.1 mg PO BID PRN 04/08/19 [History] Cefuroxime Axetil [Ceftin] 500 mg PO BID 7 Days #14 tab 04/11/19 [Rx] Follow up Appointment(s)/Referral(s): Werner Johns MD [STAFF PHYSICIAN] - 1 Week Patient Instructions/Handouts: Methamphetamine Abuse (ED) Activity/Diet/Wound Care/Special Instructions: Activity as tolerated Diet heart healthy Discharge Disposition: HOME SELF-CARE
[2019-04-11 14:56] VITALS: BP 110/72; PULSE 89; TEMP 98.7
== END 2019-04-11 15:23 | disposition home or self-care (01) ==
LOC: EC 16:35 → 4SSUR 04-09 02:17 → INTOOBSV 04-09 02:17 → UNDODISIN 04-11 15:23
PROVIDERS: ADMIT Internal Medicine; ATTEND Internal Medicine
DX: R41.0 Disorientation, unspecified (principal); K14.9 Disease of tongue, unspecified; R33.9 Retention of urine, unspecified; N39.0 Urinary tract infection, site not specified; F15.10 Other stimulant abuse, uncomplicated; F11.11 Opioid abuse, in remission; F32.9 Major depressive disorder, single episode, unspecified; F41.9 Anxiety disorder, unspecified; F90.9 Attention-deficit hyperactivity disorder, unspecified type; N32.89 Other specified disorders of bladder; Z79.899 Other long term (current) drug therapy; Z87.442 Personal history of urinary calculi; G43.909 Migraine, unspecified, not intractable, without status migrainosus; G89.29 Other chronic pain; M54.9 Dorsalgia, unspecified; F29 Unspecified psychosis not due to a substance or known physiological condition; Z78.1 Physical restraint status
CPT/HCPCS: 96365; 96366; 96372 ×4; 99285; 51702; 51798; 36415; 80053 ×2; 80048; 84132; 85025 ×3; 81001; 80306; 83520; 87086; 74177; G0378 ×3; G0480 ×2; J2060; J1200; J1644 ×3; S0106 ×3; J0696 ×2; J1885; Q9967; 80320; 80329

== ENCOUNTER 2019-05-12 12:03 | Emergency (ER) | payer OTHER ==
[2019-05-12 12:23] VITALS: BP 121/97; PULSE 99; RESP 18; TEMP 98
--- NOTE | 2019-05-12 13:01 | ED ---
General Adult HPI - General Chief complaint: Psychiatric Symptoms Stated complaint: Mental Health Time Seen by Provider: 05/12/19 12:20 Source: patient, EMS, RN notes reviewed Mode of arrival: EMS Limitations: no limitations - History of Present Illness Initial comments: This is a 33-year-old male who presents emergency Department complaining of being out of his psychiatric medications for 2 weeks. Patient states he comes in today because he thinks he needs to be back on his medications because he is hearing more voices and seeing a lot of people. Patient states this is becoming disturbing and he thinks he needs his medications. Patient denies any suicidal homicidal ideations. Patient denied drug use. Patient denied any drinking. Patient denies any physical complaints today. Patient denies headache patient denies numbness weakness. Patient denies abdominal pain patient denies chest pain patient denies any difficulty breathing. Patient denies any recent fever chills or cough. - Related Data Home Medications Medication Instructions Recorded Confirmed OLANZapine [ZyPREXA] 20 mg PO HS 04/08/19 05/12/19 buPROPion HCL [Wellbutrin SR] 300 mg PO DAILY 04/08/19 05/12/19 cloNIDine HCL [Catapres] 0.1 mg PO BID PRN 05/12/19 05/12/19 Allergies Allergy/AdvReac Type Severity Reaction Status Date / Time No Known Allergies Allergy Verified 05/12/19 12:15 Review of Systems ROS Statement: Those systems with pertinent positive or pertinent negative responses have been documented in the HPI. ROS Other: All systems not noted in ROS Statement are negative. Past Medical History Past Medical History: No Reported History Additional Past Medical History / Comment(s): chronic back pain, migraine, seasonal ALLERGIES, kidney stones History of Any Multi-Drug Resistant Organisms: None Reported Past Surgical History: No Surgical Hx Reported Additional Past Surgical History / Comment(s): Oral Surgery 1990s, per patient. Past Anesthesia/Blood Transfusion Reactions: No Reported Reaction Past Psychological History: ADD/ADHD, Anxiety, Depression Smoking Status: Never smoker Past Alcohol Use History: None Reported Past Drug Use History: None Reported - Past Family History Father Family Medical History: No Reported History Additional Family Medical History / Comment(s): Father is approximately 50 years of age. Patient has no contact with his father. Mother Family Medical History: No Reported History Additional Family Medical History / Comment(s): Mother is age 48 and healthy with no major medical problems. Sister(s) Family Medical History: No Reported History Additional Family Medical History / Comment(s): He has 2 sisters with no major medical problems. Patient does not have any brothers. General Exam - General Exam Comments Initial Comments: GENERAL: Patient is well-developed and well-nourished. Patient is nontoxic and well- hydrated and is in no acute distress. ENT: Neck is soft and supple. No significant lymphadenopathy is noted. Oropharynx is clear. Moist mucous membranes. Neck has full range of motion without eliciting any pain. EYES: The sclera were anicteric and conjunctiva were pink and moist. Extraocular movements were intact and pupils were equal round and reactive to light. Eyelids were unremarkable. PULMONARY: Unlabored respirations. Good breath sounds bilaterally. No audible rales rhonchi or wheezing was noted. CARDIOVASCULAR: There is a regular rate and rhythm without any murmurs gallops or rubs. ABDOMEN: Soft and nontender with normal bowel sounds. SKIN: Skin is clear with no lesions or rashes and otherwise unremarkable. NEUROLOGIC: Patient is alert and oriented x3. Cranial nerves II through XII are grossly intact. Motor and sensory are also intact. Normal speech, volume and content. Symmetrical smile. MUSCULOSKELETAL: Normal extremities with adequate strength and full range of motion. LYMPHATICS: No significant lymphadenopathy is noted PSYCHIATRIC: Patient is hyperverbal. Patient states he is not homicidal or suicidal. Patient states he is seeing people and hearing a lot of voices. Limitations: no limitations Course Vital Signs 05/12/19 12:20 Temperature 98 F Pulse Rate 99 Respiratory 18 Rate Blood Pressure 121/97 O2 Sat by Pulse 100 Oximetry Medical Decision Making - Medical Decision Making [facility] evaluated the patient and set up an appointment for the patient to palpation stated he would go. Disposition Clinical Impression: Chronic schizophrenia Disposition: HOME SELF-CARE Condition: Good Instructions (If sedation given, give patient instructions): Schizophrenia (ED) Is patient prescribed a controlled substance at d/c from ED?: No Referrals: None,Stated [Primary Care Provider] - 1-2 days Time of Disposition: 15:06
== END 2019-05-12 15:34 | disposition home or self-care (01) ==
LOC: EC 12:03
DX: F20.89 Other schizophrenia (principal); F32.9 Major depressive disorder, single episode, unspecified; F90.9 Attention-deficit hyperactivity disorder, unspecified type; Z79.899 Other long term (current) drug therapy
CPT/HCPCS: 82075; 99285

== ENCOUNTER → 2020-08-03 | Outpatient (CLI) | payer OTHER ==
[2020-08-03 11:16] LABS: HCT 46.8 % (39.0-53.0); HGB 16.9 gm/dL (13.0-17.5); MCH 31.9 pg (25.0-35.0); MCHC 36.2 g/dL (31.0-37.0); MCV 88.1 fL (80.0-100.0); Mean Platelet Volume 6.8; Platelet Count 308 k/uL (150-450); RBC 5.31 m/uL (4.30-5.90); RDW 14.2 % (11.5-15.5); WBC 5.5 k/uL (3.8-10.6)
[2020-08-03 12:33] LABS: Eosinophils # (M) 0.11 k/uL (0-0.7); Lymphocytes # (M) 2.26 k/uL (1.0-4.8); Monocytes # (M) 0.33 k/uL (0-1.0); Neutrophils # (M) 2.81 k/uL (1.3-7.7); Neutrophils % (M) 51 %; Nucleated Red Blood Cells 0 /100 WBC (0-0); Total Cells Counted 100
[2020-08-03 21:21] LABS: ALT 75 U/L (10-49); AST 39 U/L (14-35); Albumin/Globulin Ratio 1.92 (1.60-3.17); Alkaline Phosphatase 100 U/L (41-126); Bilirubin, Conjugated <0.20 mg/dL (0.20-0.40); Chol/HDL Ratio 6.19; Cholesterol 291 mg/dL (0-200); Globulin 2.4 g/dL (1.6-3.3); Total Bilirubin 0.5 mg/dL (0.2-1.2)
== END | disposition home or self-care (01) ==
LOC: LABWHC1 10:42
PROVIDERS: ATTEND Nurse Practitioner Family
DX: F14.20 Cocaine dependence, uncomplicated (principal)
CPT/HCPCS: 36415; 80061; 80076; 80299; 83036; 83721; 85025

== ENCOUNTER → 2021-09-21 | Outpatient (CLI) | payer OTHER ==
[2021-09-21 19:20] LABS: Basophils # (A) 0.03 X 10*3/uL (0.00-0.10); Basophils % (A) 0.7 %; Eosinophils # (A) 0.02 X 10*3/uL (0.04-0.35); Eosinophils % (A) 0.4 %; HGB 14.5 g/dL (13.0-17.0); Immature Grans, Automated 0.4 %; Lymphocytes # (A) 1.71 X 10*3/uL (0.90-5.00); Lymphocytes % (A) 37.3 %; MCH 32.7 pg (27.0-32.0); MCHC 34.5 g/dL (32.0-37.0); MCV 94.8 fL (80.0-97.0); Monocytes # (A) 0.53 X 10*3/uL (0.20-1.00); Monocytes % (A) 11.5 %; NRBC Per 100 WBC 0 /100 WBCS (0.0-0.0); Neutrophils # (A) 2.28 X 10*3/uL (1.80-7.70); Neutrophils % (A) 49.7 %; Platelet Count 235 X 10*3/uL (140-440); RBC 4.43 X 10*6/uL (4.40-5.60); RDW 13.8 % (11.5-14.5); WBC 4.59 X 10*3/uL (4.50-10.00)
[2021-09-21 19:39] LABS: ALT 41 U/L (10-49); AST 24 U/L (14-35); African American GFR (CKD) 101.5 (60.0-200.0); Albumin 4.1 g/dL (3.8-4.9); Albumin/Globulin Ratio 1.65 (1.60-3.17); Alkaline Phosphatase 126 U/L (41-126); BUN/Creat Ratio 7.92 Ratio (12.00-20.00); Blood Urea Nitrogen 8.5 mg/dL (9.0-27.0); Calcium 8.9 mg/dL (8.7-10.3); Chloride 103 mmol/L (96-109); Chol/HDL Ratio 3.69 Ratio; Globulin 2.5 g/dL (1.6-3.3); Glucose 102 mg/dL (70-110); LDL Cholesterol,Calculated 30.3 mg/dL (0.0-131.0); Non-African American GFR(CKD) 87.6 (60.0-200.0); Sodium 137 mmol/L (135-145); Total Protein 6.6 g/dL (6.2-8.2)
== END | disposition home or self-care (01) ==
LOC: LABWHC1 12:50
PROVIDERS: ATTEND Nurse Practitioner Psychiatric/Mental Health
DX: F41.1 Generalized anxiety disorder (principal); F33.3 Major depressive disorder, recurrent, severe with psychotic symptoms; Z79.899 Other long term (current) drug therapy
CPT/HCPCS: 36415; 80053; 80061; 83036; 84439; 84443; 85025

== ENCOUNTER → 2022-08-09 | Outpatient (CLI) | payer OTHER ==
[2022-08-09 19:19] LABS: ALT 108 U/L (10-49); AST 67 U/L (14-35); African American GFR (CKD) 98.6 (60.0-200.0); Albumin 4.3 g/dL (3.8-4.9); Alkaline Phosphatase 116 U/L (41-126); BUN/Creat Ratio 8.15 Ratio (12.00-20.00); Bilirubin, Conjugated <0.20 mg/dL (0.20-0.40); Blood Urea Nitrogen 8.9 mg/dL (9.0-27.0); Calcium 9.4 mg/dL (8.7-10.3); Carbon Dioxide 27.4 mmol/L (20.0-27.5); Chloride 101 mmol/L (96-109); Chol/HDL Ratio 5.97 Ratio; Globulin 2.2 g/dL (1.6-3.3); Glucose 83 mg/dL (70-110); Non-African American GFR(CKD) 85.1 (60.0-200.0); Potassium 4.2 mmol/L (3.5-5.5); Sodium 137 mmol/L (135-145); Total Protein 6.5 g/dL (6.2-8.2)
[2022-08-09 20:18] LABS: Basophils # (A) 0.06 X 10*3/uL (0.00-0.10); Basophils % (A) 0.8 %; Eosinophils # (A) 0.18 X 10*3/uL (0.04-0.35); Eosinophils % (A) 2.5 %; HCT 44.7 % (39.6-50.0); HGB 16.2 g/dL (13.0-17.0); Immature Grans, Automated 0.4 %; Lymphocytes # (A) 2.36 X 10*3/uL (0.90-5.00); Lymphocytes % (A) 33.1 %; MCHC 36.2 g/dL (32.0-37.0); MCV 88.2 fL (80.0-97.0); Mean Platelet Volume 9.5 fL (9.5-12.2); Monocytes # (A) 0.65 X 10*3/uL (0.20-1.00); Monocytes % (A) 9.1 %; NRBC Per 100 WBC 0 /100 WBCS (0.0-0.0); Neutrophils # (A) 3.85 X 10*3/uL (1.80-7.70); Neutrophils % (A) 54.1 %; Platelet Count 361 X 10*3/uL (140-440); RBC 5.07 X 10*6/uL (4.40-5.60); RDW 12.2 % (11.5-14.5); WBC 7.13 X 10*3/uL (4.50-10.00)
== END | disposition home or self-care (01) ==
LOC: LABWHC1 12:26
PROVIDERS: ATTEND Registered Nurse
DX: F33.3 Major depressive disorder, recurrent, severe with psychotic symptoms (principal); Z79.899 Other long term (current) drug therapy
CPT/HCPCS: 36415; 80053; 80061; 82248; 83036; 84439; 84443; 85025; 93005